=== PATIENT | male | born 1965 | race Caucasian/White ===

== ENCOUNTER 2019-08-25 08:49 | Emergency (ER) | payer MEDICAID, SELFPAY ==
[2019-08-25 08:50] VITALS: BP 169/105; PULSE 93; RESP 15; TEMP 36.6; O2SAT 96; BMI 29.6
--- NOTE | 2019-08-25 09:12 | ED.VISSUMM ---
- ER Visit Summary Date of Service: 08/25/19 Chief Complaint: Low back pain History of Present Illness: The patient is a 54 M no significant past medical history. Patient states that he was removing a air-conditioner from a window at his home and it slipped and he woke up this morning with low back pain. He denies any fall. No other trauma. No weakness or numbness to his legs. No bowel or bladder incontinence. No back history. No prior back surgery. Physical Examination: Middle-aged male no acute distress vital signs are stable and he is afebrile. HEENT exam unremarkable. Neck nontender. Lungs clear to auscultation bilaterally. Heart regular rhythm no murmur. Abdomen soft nontender. Normal bowel sounds no peritoneal signs. Remedies moves all 4. Neurovascular intact. Normal motor strength and sensation of both upper and lower extremities. No cauda equina. No saddle anesthesia. Back exam is mild tenderness to his lumbar spine diffusely but primarily to the left lower paralumbar soft tissues. This is consistent with a myofascial strain with spasm. Neurologically is awake and alert with no focal motor or sensory deficits. Test Results: None. Discussed with the patient imaging is not felt to be necessary at this time he is comfortable with that not being done. Emergency Department Course and Treatment: Motrin for pain. Treatment Plan: Motrin for pain and inflammation. Valium for muscle spasms. Follow-up if not improving. Off work today. Light duty for 1 week. Disposition: Discharge Impression: Acute low back pain secondary to low back strain and muscle spasm This note was generated with [employer] dictation software. It may contain incorrect words, spelling, and punctuation that were not noted in review of the chart prior to signing ED Disposition - Plan for ED Patient: Referrals: Care Physician,No Primary [Primary Care Provider] -
--- NOTE | 2019-08-25 09:15 | ED.DEP ---
ED Disposition - Plan for ED Patient: Disposition: Home or Assisted Living Instructions: Back Sprain/Strain Prescriptions: Diazepam [Valium] 5 mg PO 4X/DAY PRN PRN 7 Days #20 tab PRN Reason: Muscle Spasm Prescription Printed Referrals: Dario Barnes MD [STAFF PHYSICIAN] - 1 Week if not improving Additional Instructions: Hot shower, warm baths and massage to relieve muscle spasm. Motrin for pain. Valium as a muscle relaxant. Do not drive or drink alcohol using Valium. Off work today. Light duty for 1 week. Follow-up if not improving.
[2019-08-25] MEDS: Ibuprofen 600 MG Tablet PO (09:17)
== END 2019-08-25 09:29 | disposition home or self-care (01) ==
LOC: ED 09:18
PROVIDERS: Emergency Provider Emergency Medicine
DX: S39.012A Strain of muscle, fascia and tendon of lower back, initial encounter (principal); X58.XXXA Exposure to other specified factors, initial encounter; Y93.89 Activity, other specified; Y92.009 Unspecified place in unspecified non-institutional (private) residence as the place of occurrence of the external cause; M62.830 Muscle spasm of back; Z72.0 Tobacco use
CPT/HCPCS: 99283

== ENCOUNTER 2020-05-09 12:55 | Emergency (ER) | payer OTHER, MEDICAID, SELFPAY ==
[2020-05-09 12:56] VITALS: BP 116/90; PULSE 87; RESP 18; TEMP 36.6; O2SAT 94; BMI 29.5
--- NOTE | 2020-05-09 13:15 | ED.DCSUM_ITS ---
History of Present Illness Informant: Patient Occurred: Days - 2 days Mechanism/Context: - - lifting Onset: Days - 2 days Context: Sudden Onset Timing: Continuous Quality of Pain: Sharp Location: righ arm Current Severity: Severe Maximum Severity: Severe Worsened by: movement Relieved by: nothing Associated Symptoms: Negative for: Parasthesia, Weakness, Loss of Funtion Narrative: 54-year-old male [id number] presents with a right arm injury. He was lifting up a box 2 days ago flexing at the elbow and felt a pop in his bicep. He has had pain swelling and bruising. No trauma. No weakness. No paresthesia s. No chest pain or shortness of breath. Tetanus Immunization: Unknown Prior similar symptoms: No Recent Illness/Hospitalization: No <Leoncio Baker - Last Filed: 05/09/20 13:40> <Mello Granado - Last Filed: 05/09/20 14:05> Chief Complaint: Upper Extremity Injury Past Medical History Prior records reviewed: Yes Past Medical History: None Surgical History: no surgical history Lives: With Family Smoking Status: Current every day smoker Alcohol: Occasional Drugs: None <Leoncio Baker - Last Filed: 05/09/20 13:40> <Mello Granado - Last Filed: 05/09/20 14:05> - Allergies and Home Meds Allergies/Adverse Reactions: Allergies No Known Allergies Allergy (Verified 05/09/20 12:58) Primary Care Physician: Jarrod Amezquita MD [STAFF PHYSICIAN] - As soon as possible Review of Systems All systems negative except as indicated General: Denies: Chills, Fever, Sweats Eyes: Denies: Visual changes - bilaterally, Diplopia ENT: Denies: Rhinorrhea, Sore throat Cardiovascular: Denies: Chest pain, Palpitations Respiratory: Denies: Dyspnea, Cough, Dyspnea on exertion Gastrointestinal: Denies: Abdominal pain, Nausea, Vomiting, Diarrhea, Melena, Hematochezia Genitourinary: Denies: Dysuria, Hematuria, Frequency Musculoskeletal: Reports: Swelling, Extremity Pain. Denies: Back pain Skin: Denies: Rash, Wounds Neurological: Denies: Headache, Weakness, Parasthesia, Numbness <Leoncio Baker - Last Filed: 05/09/20 13:40> Physical Exam Vital Signs/Narrative: Vital Signs Temp Pulse Resp BP Pulse Ox 05/09/20 12:56 98 F 87 18 116/90 H 94 Inital Vital Signs reviewed: Yes Right Humerus: - - Patient has swelling and bruising of his right arm with obvious bunching of his right bicep. He has a Orestes deformity. He is got pain on palpation over his proximal arm but not over the shoulder or deltoid. He has a normal radial pulse. He has no signs of compartment syndrome. He is normal range of motion at his shoulder and wrist. General: Well nourished, Well developed Head: Normocephalic, Atraumatic Eyes: Perrl, EOMI ENT: No Trauma, Moist Mucous Membranes Neck: Nontender, Full ROM Cardiovascular: Regular rate, Regular rhythm, No murmurs Respiratory: No distress, CTA bilaterally, Chest nontender Abdomen: Soft, Nontender, Nondistended, Normal bowel sounds Back: Nontender Skin: Normal color, No rash Neurological: Alert, Oriented x3, Cranial nerves II-XII grossly intact, Normal Strength, Normal Sensation Psychological: Normal affect <Leoncio Baker - Last Filed: 05/09/20 13:40> Vital Signs/Narrative: Vital Signs Temp Pulse Resp BP Pulse Ox 05/09/20 12:56 98 F 87 18 116/90 H 94 <Mello Granado - Last Filed: 05/09/20 14:05> Diagnostic/Tx/Re-eval Impressions Humerus X-Ray 05/09/20 13:20 IMPRESSION: Normal x-ray examination of the humerus. Electronically Signed: Rubin Pleitez MD at 13:35 EDT Tel , Service support , Shoulder X-Ray 05/09/20 13:20 IMPRESSION: Normal x-ray examination of the shoulder. Electronically Signed: Rubin Pleitez MD at 13:36 EDT Tel , Service support , 05/09/20 13:20 Humerus min 2 Views [RAD] Stat Shoulder min 2 Views [RAD] Stat - Medical Decision Making On exam the patient clinically has evidence of a proximal right bicep tear. No signs of compartment syndrome. X-rays of the shoulder and humerus are negative. I spoke with Dr. Amezquita on-call orthopedic surgeon to arrange for close follow- up. Patient will be given a note for work. He will rest he will ice he will elevate I will prescribe analgesia and he will call orthopedics tomorrow to arrange for close follow-up <Leoncio Baker - Last Filed: 05/09/20 13:40> - Medical Decision Making I saw this patient with the physician assistant purchasing manager and agree. Patient was lifting a heavy box. He developed a sudden pain in his right upper arm and noticed swelling there. On clinical examination findings are most consistent with a biceps tendon rupture. X-rays were negative for fracture. We did speak to orthopedics on-call patient will follow-up later this week. <Mello Granado - Last Filed: 05/09/20 14:05> ED Disposition <Leoncio Baker - Last Filed: 05/09/20 13:40> <Mello Granado - Last Filed: 05/09/20 14:05> - Plan for ED Patient: Disposition: Home or Assisted Living Diagnosis: right proximal bicep tendon tear Instructions: ED Shoulder Pain Uncertain Cause Prescriptions: Naproxen [Naprosyn] 500 mg PO BID #20 tab Prescription Printed Hydrocodone Bitart/Apap 5-325 [[place] 5MG-325MG] 1 tab PO Q6H PRN PRN 3 Days #10 tab PRN Reason: Pain Prescription Printed Referrals: Jarrod Amezquita MD [STAFF PHYSICIAN] - As soon as possible Additional Instructions: What is biceps tendinopathy? Biceps tendinopathy is a condition that can cause pain in the front of the shoulder. Doctors use the term biceps tendinopathy when people have a problem with their biceps tendon. The biceps is the muscle in the front of the upper arm (figure 1). Tendons are strong bands of tissue that connect muscles to bones. In people with biceps tendinopathy, a tendon in the shoulder called the long head biceps tendon is most often affected. In most people with biceps tendinopathy, the tendons are not inflamed or swollen. If they do get inflamed or swollen, doctors call it tendinitis. What causes biceps tendinopathy? This condition can happen as people get older, especially if they do a lot of work or activity with their arms overhead. Tendinitis can happen if people hurt their upper arm or shoulder, or do the same movements over and over. What are the symptoms of biceps tendinopathy? The most common symptoms are: ?Pain in the front of the shoulder ? The pain is usually worse at night and with lifting, pulling, or reaching overhead. ?Trouble moving the upper arm and shoulder People with tendinitis can also have swelling. Sometimes, an injured tendon tears. This can cause a sudden pop, pain, bruising, or swelling. Will I need tests? You might. Your doctor or nurse will talk with you and do an exam. They might also do an imaging test, such as an ultrasound or MRI scan. Imaging tests create pictures of the inside of the body. How is biceps tendinopathy treated? Most of the time, this condition will get better on its own, but it can take weeks to months to heal completely. For the first few days or weeks of your symptoms, you can try the following steps to see if you feel better: ?Rest your arm and shoulder ? Avoid lifting or reaching overhead. Try to keep your arm down, close to, and in front of your body. If you find you need to keep your arm still and close to your body for a while, do some pendulum swings (described below) from time to time. This will help keep you from getting too stiff. ?Ice the painful area ? Put a cold gel pack, bag of ice, or bag of frozen vegetables on the injured area every 1 to 2 hours, for 15 minutes each time. This is especially helpful after you do a lot of activity involving your shoulder. Put a thin towel between the ice (or other cold object) and your skin. ?Take medicine to reduce the swelling and pain ? To treat pain, you can take acetaminophen (sample brand name: Tylenol). Your doctor might also recommend that you take a nonsteroidal antiinflammatory drug or NSAID. NSAIDs are a group of medicines that includes ibuprofen (sample brand names: Advil, Motrin) and naproxen (sample brand names: Aleve, Naprosyn). If your symptoms don't improve with these treatments, your doctor or nurse might recommend that you have physical therapy (work with an exercise expert). They might also recommend that you do exercises at home. The following shoulder exercises can help stretch your shoulder and keep it from getting too stiff: ?Pendulum swing ? Let your arm relax and hang down, while you sit or stand. Move your arm back and forth, then side to side, and then around in small circles (figure 2). Try to do this exercise for 5 minutes, 1 or 2 times a day. Your doctor might suggest that you hold a weight in your hand when doing the exercise to make it harder. ?Wall walk ? Face a wall, and stand close enough so that you can touch the wall with your fingertips. Stretch out your arm, parallel to the floor, and put your fingertips on the wall. Then walk your fingers up the wall until you feel mild soreness or aching. Keep your shoulders level (do not shrug them). Try to do this exercise for 5 minutes, 2 or 3 times a day (picture 1). When you do these exercises, it's important to: ?Warm up your shoulder first by taking a hot shower or bath, or putting a heating pad on it. ?Start slowly and make the exercises harder over time. ?Know that some soreness is normal. If you have sharp or tearing pain, stop what you're doing and let your doctor or nurse know. What if my symptoms don't get better? If your symptoms don't get better, talk with your doctor or nurse about other possible treatments, such as: ?Getting a shot of medicine into the painful area ?Surgery When will I be able to do my usual activities again? You can return to your usual activities when you are able to move your arm in all directions without pain. To avoid hurting yourself, restart your activities or sports slowly.
--- NOTE | 2020-05-09 13:20 | RAD_ITS ---
STUDY: X-RAY - RIGHT HUMERUS REASON FOR EXAM: Male, 54 years old. ARM INJURY 4 DAYS AGO, PAIN AND BRUISING TECHNIQUE: 2 view(s) of the humerus. COMPARISON: None. FINDINGS: Normal visualized humerus. There is no demonstrated fracture or osseous destructive process. There is no demonstrated soft tissue abnormality. RAD/Humerus min 2 Views IMPRESSION: Normal x-ray examination of the humerus. Electronically Signed: Rubin Pleitez MD at 13:35 EDT Tel , Service support ,
--- NOTE | 2020-05-09 13:20 | RAD_ITS ---
STUDY: X-RAY - RIGHT SHOULDER REASON FOR EXAM: Male, 54 years old. SHOULDER INJURY 4 DAYS AGO, PAIN AND BRUISING TECHNIQUE: 4 view(s) of the shoulder. COMPARISON: None. FINDINGS: Normal glenohumeral articulation. Normal acromioclavicular joint. Normal acromion. Normal humeral head and visualized proximal humerus. The soft tissue structures are unremarkable. Normal visualized pulmonary apex. RAD/Shoulder min 2 Views IMPRESSION: Normal x-ray examination of the shoulder. Electronically Signed: Rubin Pleitez MD at 13:36 EDT Tel , Service support ,
== END 2020-05-09 14:00 | disposition home or self-care (01) ==
PROVIDERS: Emergency Provider Physician Assistant Medical
DX: S46.211A Strain of muscle, fascia and tendon of other parts of biceps, right arm, initial encounter (principal); F17.200 Nicotine dependence, unspecified, uncomplicated; X50.0XXA Overexertion from strenuous movement or load, initial encounter
CPT/HCPCS: 73030; 73060; 99282

== ENCOUNTER 2022-02-28 10:02 | Emergency (ER) | payer BC, MEDICAID, SELFPAY ==
[2022-02-28 10:03] VITALS: BP 173/109; PULSE 84; RESP 16; TEMP 36.4; O2SAT 99; BMI 29.6
--- NOTE | 2022-02-28 10:30 | RAD_ITS ---
STUDY: X-RAY - LEFT HAND, ATTENTION MIDDLE FINGER REASON FOR EXAM: Male, 56 years old. Infection -- 3rd finger TECHNIQUE: 3 view(s) of the finger were obtained. COMPARISON: None. FINDINGS: Normal metacarpal head. Normal metacarpophalangeal joint. Normal proximal phalanx. Normal middle phalanx. Adjacent to the distal aspect of the middle phalanx, there is a 2.4 mm well-defined bony density suggestive of an old avulsion fracture. Normal distal phalanx. Normal proximal interphalangeal joint. Normal distal interphalangeal joint. Diffuse soft tissue swelling. RAD/Finger(s) Min 2 Views IMPRESSION: Diffuse soft tissue swelling. Electronically Signed: Hayden Yusuf MD at 10:56 EDT ,
[2022-02-28] MEDS: HYDROcodone Bitartrate/Apap 5/325 Tablet PO (10:31)
[2022-02-28] MEDS: Clindamycin HCl 150 MG Capsule 450 MG PO (10:31)
[2022-02-28] MEDS: Lidocaine 1% (20 ml mdv) 20 ML Vial INFILT (10:42)
--- NOTE | 2022-02-28 12:12 | EDS_ITS ---
HPI History of Present Illness Chief Complaint: Upper Extremity Injury Detail of Chief Complaint: Left third finger infection Informant: patient Onset/Context/Timing Onset: Days Context: Gradual Onset Current Severity: Moderate Maximum Severity: Moderate Narrative Narrative: Patient presents secondary to infection in his left third finger. He states it has become increasingly painful over the past couple of days. He did get a small amount of pus to drain along the nail border yesterday. Today it was too painful to attempt again. 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 He does not remember an injury. PFSH PFS Medical History Pneumothorax Home Medications NK 02/28/22 [History Last Taken Unknown] clindamycin HCl 300 mg PO 4X/DAY #80 cap 02/28/22 [Rx Last Taken Unknown] hydrocodone-acetaminophen 1 tab PO Q6H PRN 3 Days #10 tab 02/28/22 [Rx Last Taken Unknown] Allergy/AdvReac Type Severity Reaction Status Date / Time No Known Allergies Allergy Verified 02/28/22 10:04 Surgical History History of appendectomy Social History Smoking Status: Current every day smoker tobacco type: cigarettes ROS ROS ED Constitutional Constitutional ED: Denies chills or fever(s) Eyes Eyes: Denies change in vision ENT ENT ED: Denies sore throat Cardiovascular Cardiovascular: Denies chest pain Respiratory/Chest Respiratory/Chest: Denies cough or dyspnea Gastrointestinal Gastrointestinal: Denies abdominal pain, nausea or vomiting Genitourinary Genitourinary ED: Denies dysuria Musculoskeletal Musculoskeletal: Reports other Details: Left third finger pain and swelling. ; Denies back pain Integumentary Denies rash Neurologic Neurologic: Denies headache(s) or weakness Allergic/Immunologic Allergic/Immunologic ED: Denies urticaria EXAM Physical Exam Const Vital Signs: 02/28/22 10:03 Temperature 97.6 F L Temperature Source Temporal Pulse Rate 84 Respiratory Rate 16 Blood Pressure 173/109 H Blood Pressure Mean 130 Pulse Ox 99 Oxygen Delivery Method Room Air Positive well nourished and well developed General Appearance ED: well developed HEENT normocephalic and atraumatic Eyes PERRL and EOMs intact bilaterally Neck supple Chest Wall inspection of chest normal and palpation of chest normal Resp normal respiratory effort and clear to auscultation bilaterally Cardio regular rate and regular rhythm GI non-tender Palpation: soft Extremity Extremity Narrative: Tenderness and edema noted to the distal phalanx of the left third finger. Findings are consistent with a felon. No spontaneous drainage at this time. No open wounds. Neuro oriented x3 Sensorium / Orientation: alert Psych mental status grossly normal Skin Lesions: no lesions Rashes: no rashes MDM MDM MDM Narrative Medical decision making narrative: Left third finger x-rays obtained. Patient given [place] and clindamycin for pain. Radiography Diagnostic Testing: Clinical Impression(s) from Imaging Studies Finger X-Ray 02/28/22 10:30 IMPRESSION: Diffuse soft tissue swelling. Electronically Signed: Hayden Yusuf MD at 10:56 EDT , Treatment and Re-Evaluation Narrative: Finger x-ray per my interpretation reveals no radiopaque foreign body. Radiology interpretation reviewed and agrees. Digital block is performed using 5 cc 1% lidocaine. Following good anesthesia wound is thoroughly cleansed. A incision is made with a #11 blade on the radial surface of the left distal phalanx. Small amount of pus does return along with blood. Curved hemostats were used to open loculations. Wound is cleansed, irrigated, and dressed. Patient will be given prescription for [place] as well as clindamycin. Return instructions given. Discharge Plan Triage Chief Complaint: Upper Extremity Injury ED Provider: Kasey Ruano Dx/Rx/DC Orders Clinical Impression: Felon Instructions: ED Paronychia of the Finger or Toe Prescriptions: New clindamycin HCl 150 MG capsule 300 mg PO 4X/DAY Qty: 80 RF: 0 hydrocodone-acetaminophen 5-325 mg tablet 1 tab PO Q6H PRN (Reason: pain) 3 Days Qty: 10 RF: 0 No Action NK RF: 0 Stand Alone Forms: ED Work / School Excuse Primary Care Provider: Care Physician,No Primary Referrals: Elly Sewell DO [STAFF PHYSICIAN] - 1-2 Weeks Care Physician,No Primary [Primary Care Provider] - Disposition Disposition: Home, Self Care Discharge Date/Time: 02/28/22 12:22
== END 2022-02-28 12:22 | disposition home or self-care (01) ==
PROVIDERS: Emergency Provider Emergency Medicine; Visit Provider Emergency Medicine
DX: L03.012 Cellulitis of left finger (principal); F17.210 Nicotine dependence, cigarettes, uncomplicated
CPT/HCPCS: 26010; 73140; 99285

== ENCOUNTER 2022-04-14 08:39 | Emergency (ER) | payer MEDICAID, SELFPAY ==
[2022-04-14 08:40] VITALS: BP 165/111; PULSE 82; RESP 17; TEMP 36.5; O2SAT 95; BMI 29.2
--- NOTE | 2022-04-14 09:04 | ED.RN ---
WAS SEEN BY DR. KEYS FOR I&D. ASKED PT. IF THEY FOLLOWED UP WITH DR. KEYS AND PT. SAID THAT DOCTOR LUDMILA TOLD HIM SHE IS NOT ACCEPTING NEW PATIENTS. AND THIS NURSE STATED, WELL, WOULD YOU BE A NEW PATIENT IF THEY ALREADY SAW YOU ONCE? PT. STATED THAT DOCTOR SAID THEY WOULD ONLY SEE THEM ONCE.
--- NOTE | 2022-04-14 09:21 | RAD_ITS ---
STUDY: X-RAY - LEFT HAND REASON FOR EXAM: Male, 56 years old. Injury to the distal third digit. TECHNIQUE: 3 view(s) of the hand. COMPARISON: None. FINDINGS: Normal radiocarpal articulation. Normal distal radioulnar joint. Normal visualized carpal bones. Normal carpal articulations Normal carpometacarpal articulation of the thumb. Normal second through fifth carpometacarpal joints. Normal metacarpi. Normal metacarpophalangeal joint of the thumb. Normal interphalangeal joint of the thumb. Normal proximal and distal phalanges of the thumb. Normal metacarpophalangeal joints of the second through fifth fingers. Normal proximal and distal interphalangeal joints of the second through fifth fingers. Tiny avulsion along the ulnar aspect of the distal portion of the middle phalanx of the third digit. Soft tissue swelling RAD/Hand Min 3 Views IMPRESSION: Tiny avulsion along the ulnar aspect of the distal portion of the middle phalanx of the third digit with overlying soft tissue swelling. Electronically Signed: Hayden Yusuf MD at 10:03 EDT ,
--- NOTE | 2022-04-14 09:22 | EDS_ITS ---
HPI <CLARE Hahn - Last Filed: 04/14/22 10:21> History of Present Illness Chief Complaint: Upper Extremity Injury Narrative Narrative: Patient is a 56-year-old male with no significant medical history presents the [place] with distal left third digit pain on the left hand. Patient has had paronychia 2 times in the last 8 weeks, he was treated with antibiotics and had it drained both times. Patient states for the last 2 to 3 days, he has had increased redness to the distal tip of the third finger, increased pain, and is here for evaluation. Patient denies any fevers or chills. Patient denies any PFSH <CLARE Hahn - Last Filed: 04/14/22 10:21> PFSH Medical History Pneumothorax Home Medications clindamycin HCl 150 mg capsule 300 mg PO 4X/DAY #80 caps 02/28/22 [Rx Last Taken Unknown] hydrocodone-acetaminophen 5-325mg 5mg-325mg 1 tab PO Q6H PRN pain 3 days #10 tabs 02/28/22 [Rx Last Taken Unknown] cephalexin 500 mg capsule 500 mg PO Q6 #40 caps 04/14/22 [Rx Last Taken Unknown] sulfamethoxazole 800 mg-trimethoprim 160 mg tablet (Bactrim DS) 1 tab PO BID #20 tabs 04/14/22 [Rx Last Taken Unknown] Allergy/AdvReac Type Severity Reaction Status Date / Time No Known Allergies Allergy Verified 04/14/22 08:40 Surgical History History of appendectomy Social History Smoking Status: Current every day smoker tobacco type: cigarettes ROS <CLARE Hahn - Last Filed: 04/14/22 10:21> ROS ED ROS Narrative Constitutional: Negative for fever, chills, weight loss, weakness Eyes: Negative for vision loss, vision change, double vision ENT: Negative for any sore throat, ear pain, congestion Cardiovascular: Negative for any chest pain, tightness, palpitations Respiratory: Negative for any cough, sputum production, hemoptysis, dyspnea, dyspnea on exertion, orthopnea Gastrointestinal: Negative for any abdominal pain, nausea, vomiting, diarrhea, constipation, blood in stool, blood in vomit : Negative for any urinary frequency, dysuria, retention, blood in urine Muscle skeletal: Negative for any muscle joint pain, stiffness, myalgias, arthralgias, neck pain, back pain. Positive for pain, redness, swelling to the left middle finger Neurological: Negative for any headache, syncope, numbness or tingling, dizziness Skin: Negative for any rashes, lumps, itching, abrasions, lacerations Psychiatric: Negative for any depression, anxiety, stress, suicidal ideation, homicidal ideation Hematologic: Negative for any easy bruising, excessive bruising, easy bleeding Allergies: Negative for any eczema, hives, rash EXAM <CLARE Hahn - Last Filed: 04/14/22 10:21> Physical Exam Narrative Exam Narrative: Vital signs reviewed. Extremities: No peripheral edema, no signs of gross trauma or deformity. Active full range of motion of all extremities. Patient has full range of motion of the left middle finger, above the DIP joint, there is some erythema, edema, there is no known drainage, there is no collection of drainage around the nailbed. It is just red, inflamed. Patient does have pain below the nail as well. Neurologically focal logically intact. Palpable radial pulse. Neuro: Cranial nerves II through XII intact, no focal neurological deficits. Skin: Clean dry and intact with no rash, purpura, petechiae, vesicles or pustules. Backs/flank: No CVA tenderness, no midline spinal tenderness, no deformity. Psych: Normal mood and affect. No SI, HI or acute psychosis. Const Vital Signs: 04/14/22 08:40 Temperature 97.7 F L Temperature Source Temporal Pulse Rate 82 Respiratory Rate 17 Blood Pressure 165/111 H Blood Pressure Mean 129 Pulse Ox 95 Oxygen Delivery Method Room Air MDM <CLARE Hahn - Last Filed: 04/14/22 10:21> [facility] Treatment and Re-Evaluation Narrative: Patient presents to the emergency department with complaints of pain and pressure to the right middle finger secondary to a paronychia. Patient has no full body symptoms such as sepsis. Patient does have history of paronychia in this area. The right hand was x-rayed inserted by ER physician, this shows a tiny avulsion along the ulnar aspect the distal portion of the middle phalanx of the third digit with overlying soft tissue swelling. Patient's right middle finger was digitally blocked, I was able to use an 11 blade and make a 1 cm incision along the cuticle line to the lateral part of the nail, copious amounts of foul-smelling yellow drainage was expelled. Patient tolerated well. Patient will be treated with Keflex, Bactrim. He will also follow-up with a hand surgeon at [facility]. He is instructed to return for any worsening symptoms. Patient stable for discharge. <Dr. Jeremiah Red, DO - Last Filed: 04/14/22 10:31> [facility] Narrative Medical decision making narrative: I have personally performed a face to face assessment of the patient and have reviewed the MASSIMO Note. I performed a substantive portion of the visit including all aspects of the following. My valerio findings include: History: Patient presents with redness and swelling to his right middle finger that has been getting worse over the past few days. Patient has a history of paronychia in that finger that has been drained twice. Patient states that the pain started to return again a few days ago. Patient describes the pain as throbbing. Patient states nothing makes it better nothing makes it worse. Patient denies any fevers or chills. Patient denies any radiation of the pain. Exam: Vital signs are stable. Patient is afebrile. Patient is in no acute distress. Skin is warm and dry. There is edema, erythema, and tenderness over the distal phalanx of the right middle finger along the nail margin. There is no active drainage. There is no fluctuance. Sensation was intact to light touch in all digits. Capillary refills less than 2 seconds in all digits. There is full range of motion. Medical Decision Making: X-rays of the right hand were obtained. There are 3 views. On my interpretation, there is a tiny avulsion along the ulnar aspect of the distal portion of the middle phalanx of the right middle finger. There are no other acute abnormalities. Radiologist also interpreted the x-rays and agrees. The right middle finger with cleaned and anesthetized 1% lidocaine. The paronychia was opened with an 11 blade scalpel. Moderate amount of purulent drainage was expressed. Patient tolerated the procedure well. Patient was given a referral for hand surgery. Patient was given prescriptions for Bactrim and Keflex. Patient was instructed to return if worse in any way. Patient understood and was agreeable with the plan. All questions were answered. Discharge Plan Triage Chief Complaint: Upper Extremity Injury ED Midlevel Provider: Ugo Rucker ED Provider: Jeremiah Red Dx/Rx/DC Orders Clinical Impression: Paronychia Instructions: ED Paronychia of the Finger or Toe Prescriptions: New cephalexin 500 mg capsule 500 mg PO Q6 Qty: 40 0RF sulfamethoxazole-trimethoprim [Bactrim DS] 800-160 mg tablet 1 tab PO BID Qty: 20 0RF No Action clindamycin HCl 150 MG capsule 300 mg PO 4X/DAY Qty: 80 0RF hydrocodone-acetaminophen 5-325 mg tablet 1 tab PO Q6H PRN (Reason: pain) 3 Days Qty: 10 0RF Primary Care Provider: Care Physician,No Primary Referrals: Care Physician,No Primary [Primary Care Provider] - Activity Restrictions/Additional Instructions: Please follow-up at [facility]: ?[id number], [place] [address] ?[phone] Print Language: Surinamese Disposition Disposition: Home, Self Care
[2022-04-14] MEDS: Lidocaine 1% (20 ml mdv) 20 ML Vial INFILT (10:17)
[2022-04-14] MEDS: Cephalexin 250 MG Capsule 500 MG PO (10:17)
[2022-04-14] MEDS: Smz/Tmp Ds Tablet 1 TABLET PO (10:17)
== END 2022-04-14 10:25 | disposition home or self-care (01) ==
PROVIDERS: Emergency Provider Emergency Medicine; Visit Provider Emergency Medicine
DX: L03.012 Cellulitis of left finger (principal); F17.210 Nicotine dependence, cigarettes, uncomplicated
CPT/HCPCS: 73130; 99283

== ENCOUNTER 2023-08-16 09:09 | Emergency (ER) | payer MEDICAID, SELFPAY ==
[2023-08-16 09:10] VITALS: BP 159/94; PULSE 76; RESP 16; TEMP 36.2; O2SAT 97; BMI 27.6
--- NOTE | 2023-08-16 09:38 | EX.ED.UPPERE ---
HPI History of Present Illness HPI Narrative: Left shoulder pain for several months after lifting and carrying a hot water tank. Denies any falls or trauma otherwise. He is right-hand dominant. Chief Complaint: Upper Extremity Injury Informant: patient and spouse/S.O. Occured/Mechanism Mechanism/Context: Yes injury Onset/Context/Timing Onset: Month(s) Context: Sudden Onset Timing: Continuous Quality of Pain: Sharp and Stabbing Current Severity: Mild Maximum Severity: Moderate Associated Symptoms Associated Symptoms: Negative for Parasthesia, Weakness or Loss of Funtion Narrative Narrative: 58-year-old male otherwise healthy. [id number]. Was lifting hot water tank around 2 months ago since that time he had pain in his left shoulder. He has normal range of motion but he has pain with range of motion especially lifting his left arm over his shoulder. He had x-rays done at another facility that were reportedly negative. Prior similar symptoms: No Recent Illness/Hospitalization: No PFSH PFSH Medical History Pneumothorax Home Medications clindamycin HCl 150 mg capsule 300 mg (2 x 150 mg) PO 4X/DAY #80 caps 02/28/22 [Rx Last Taken Unknown] hydrocodone-acetaminophen 5-325mg 5mg-325mg 1 tab PO Q6H PRN pain 3 days #10 tabs 02/28/22 [Rx Last Taken Unknown] cephalexin 500 mg capsule 500 mg PO Q6 #40 caps 04/14/22 [Rx Last Taken Unknown] sulfamethoxazole 800 mg-trimethoprim 160 mg tablet (Bactrim DS) 1 tab PO BID #20 tabs 04/14/22 [Rx Last Taken Unknown] Allergy/AdvReac Type Severity Reaction Status Date / Time No Known Allergies Allergy Verified 04/14/22 08:40 Surgical History History of appendectomy Social History Smoking Status: Current every day smoker tobacco type: cigarettes ROS ROS ED ROS Narrative Recent illness. Review of Systems ROS Unobtainable: Denies due to encephalopathy Constitutional Constitutional ED: Denies chills or fever(s) Eyes Eyes: Denies blurry vision ENT ENT ED: Denies ear pain Cardiovascular Cardiovascular: Denies chest pain Respiratory/Chest Respiratory/Chest: Denies cough or dyspnea Gastrointestinal Gastrointestinal: Denies abdominal pain Genitourinary Genitourinary ED: Denies dysuria Musculoskeletal Musculoskeletal: Denies back pain Integumentary Denies abscess or Abrasions Neurologic Neurologic: Denies headache(s) Psychiatric Psychiatric: Denies anxiety or depression Endocrine Endocrinology: Denies cold intolerance Hematologic/Lymphatic Hematologic/Lymphatic: Denies easy bleeding or easy bruising Allergic/Immunologic Allergic/Immunologic ED: Denies mouth swelling, tongue swelling or urticaria EXAM Physical Exam Narrative Exam Narrative: Well-appearing 54-year-old male. Vital signs stable afebrile. HEENT exam unremarkable. Neck nontender. Lungs clear to auscultation bilateral. Heart regular rhythm no murmur. Chest wall nontender. Abdomen soft nontender. Moving all 4 extremities. Neurovascular intact. Nontender no edema. Specifically he has full flexion extension internal/external rotation of left shoulder. He has increased pain posterior aspect of his shoulder with raising his left arm over his head. But he is able to do it. I do not see any disruption of the left AC joint. There is no bony deformity. No swelling or redness to the left shoulder joint. The joint itself is not specifically tender. He has normal flexion extension left elbow. Left wrist and hand. 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 Normal sensation. Normal radial pulse. Const Vital Signs: 08/16/23 09:10 Temperature 97.2 F L Temperature Source Temporal Pulse Rate 76 Respiratory Rate 16 Blood Pressure 159/94 H Blood Pressure Mean 115 Pulse Ox 97 Oxygen Delivery Method Room Air Positive well nourished and well developed; Negative for obese, cachectic, contractures or unkempt General Appearance ED: well developed and NAD; Negative for unkempt, cachectic, contractures, cyanotic or diaphoretic Nutritional Appearance: Negative for cachectic or obese HEENT Reports moist mucous membranes normocephalic and atraumatic; Negative for trauma or tenderness Eyes PERRL and EOMs intact bilaterally General Eye ED: Negative for other Neck full ROM and supple General: Negative for tenderness Lymph Lymphatic: Negative for other Chest Wall inspection of chest normal and palpation of chest normal Chest: Negative for other Resp normal respiratory effort and clear to auscultation bilaterally Effort and Inspection: Negative for pain with movement Auscultation: Negative for rales, rhonchi, wheezes or diminished lung sounds Cardio regular rate, regular rhythm, S1 normal heart sound, S2 normal heart sound and no murmurs Rate: Negative for bradycardia or tachycardic GI non-tender, non-distended and no masses Inspection: Negative for abdominal distention Auscultation: normoactive bowel sounds Palpation: soft; Negative for tender or guarding Bladder / Kidney Exam: No other Back/Spine no CVA tenderness General Back: Negative for CVA tenderness Cervical Spine: Negative for cervical spine tenderness Thoracic Spine / Upper Back: Negative for thoracic spinal tenderness Lumbar Spine / Lower Back: Negative for lumbar spinal tenderness Extremity normal to inspection and full ROM Extremity Narrative: Full range of motion left shoulder. No swelling. No redness. Increased pain in posterior shoulder with raising his left arm above his head. 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 Normal sensation. Exam is consistent with a possible rotator cuff injury on the left. But she does have continued range of motion. AC joints nontender. No deformity. General Extremety ED: Negative for edema General Extremity: Negative for edema Neuro oriented x3, CN's II-XII intact bilaterally, moves all extremities, no focal motor deficits and no sensory deficits noted Sensorium / Orientation: alert, oriented to person, oriented to place and oriented to time; Negative for orientation impaired Motor Exam: strength 5/5 throughout Psych mental status grossly normal Appearance: Negative for unkempt Attitude: No agitated Mood & Affect: Negative for depressed, anxious or tearful Skin General Skin Exam: Negative for petechiae Lesions: no lesions Rashes: no rashes Trauma: no lacerations or abrasions; Negative for abrasion or laceration MDM MDM MDM Narrative Medical decision making narrative: 58-year-old male with left shoulder injury 2 months ago. Continued pain and worse with range of motion specifically elevation of the left arm above the shoulder. Clinically I suspect a rotator cuff injury this could also be other things. Patient's had prior x-rays that were negative. He needs to follow-up with an orthopedic physician and most likely get an MRI. Discharge Plan Triage Chief Complaint: Upper Extremity Injury ED Provider: Hiren Andrews Dx/Rx/DC Orders Clinical Impression: Acute shoulder pain Instructions: ED Shoulder Pain, Uncertain Cause Prescriptions: No Action clindamycin HCl 150 MG capsule 300 mg PO 4X/DAY Qty: 80 0RF hydrocodone-acetaminophen 5-325 mg tablet 1 tab PO Q6H PRN (Reason: pain) 3 Days Qty: 10 0RF cephalexin 500 mg capsule 500 mg PO Q6 Qty: 40 0RF sulfamethoxazole-trimethoprim [Bactrim DS] 800-160 mg tablet 1 tab PO BID Qty: 20 0RF Primary Care Provider: Sheridan Lai Referrals: Michelet Grove MD [Non-Staff] - As soon as possible Cullen Mobley DO [Med Staff - Active Staff] - As soon as possible Care Physician,No Primary [Non-Staff] - Activity Restrictions/Additional Instructions: Most likely you have an injury to your left shoulder rotator cuff it could also possibly be an injury to the AC joint or the cartilage in the shoulder. You most likely need an MRI of your shoulder to make the diagnosis. Typically this will not show up on plain x-rays. Call and follow-up with Dr. Hiren Grove a shoulder specialist at the [facility] or Dr. Mobley a local general orthopedist. Motrin and/or Tylenol for pain. Disposition Disposition: Home, Self Care
== END 2023-08-16 10:24 | disposition home or self-care (01) ==
LOC: ED 09:38
PROVIDERS: Emergency Provider Emergency Medicine; PCP Internal Medicine; Visit Provider Emergency Medicine
DX: M25.512 Pain in left shoulder (principal); F17.210 Nicotine dependence, cigarettes, uncomplicated
CPT/HCPCS: 99282

== ENCOUNTER → 2023-09-07 | Outpatient (CLI) | payer MEDICAID, SELFPAY ==
--- NOTE | 2023-09-07 11:04 | MRI_ITS ---
STUDY: MRI LEFT SHOULDER REASON FOR EXAM: Male, 58 years old. Sprain. Left shoulder pain, status post lifting injury x 3 months, limited range of motion, pain in shoulder and scapula, throbbing, sharp, popping, no surgery on shoulder. TECHNIQUE: Standardized fat and water weighted pulse sequences were obtained in all 3 orthogonal planes. COMPARISON: None. FINDINGS: There is a full-thickness tear of the distal supraspinatus tendon, overall measuring 1.8 cm in length (coronal T2 series 6 images 11-15) and 2.0 cm in width (sagittal T2 series 7 images 12-16). There is mild infraspinatus and subscapularis tendinosis. Normal teres minor tendon. Normal supraspinatus muscle. Normal infraspinatus muscle. Normal subscapularis muscle. Normal teres minor muscle. There is tendinosis and partial tearing of the long biceps tendon. There is a small glenohumeral joint effusion with fluid communicating into the subacromial-subdeltoid bursa. Intact humeral head and visualized proximal humerus. Normal labrum. Normal capsulo-ligamentous complex. There is mild hypertrophic acromioclavicular arthrosis, with inferior osteophyte formation, with minimal effacement of the supraspinatus myotendinous junction. There is a Type II morphology (curved), with a neutral orientation. There is no subacromial-subdeltoid bursal fluid. Normal visualized coracohumeral and coracoacromial ligaments. Normal quadrilateral space. Normal axillary space. Normal deltoid muscle. Normal trapezius muscle. MRI/Upper Ext Joint Only(Routine) IMPRESSION: 1.8 x 2.0 cm full-thickness tear of the distal supraspinatus tendon. Mild infraspinatus and subscapularis tendinosis. Mild hypertrophic acromioclavicular arthrosis, with inferior osteophyte formation, with minimal effacement of the supraspinatus myotendinous junction. Small glenohumeral joint effusion with fluid communicating into the subacromial-subdeltoid bursa. Tendinosis and partial tearing of the long biceps tendon. Electronically Signed: Keaton Hernandez MD at 12:50 EST ,
== END | disposition home or self-care (01) ==
PROVIDERS: PCP Internal Medicine; Referring Provider Physician Assistant Surgical; Visit Provider Physician Assistant Surgical
DX: S46.012A Strain of muscle(s) and tendon(s) of the rotator cuff of left shoulder, initial encounter (principal)
CPT/HCPCS: 73221

== ENCOUNTER 2023-10-18 05:46 | Day surgery (SDC) | payer MEDICAID, SELFPAY ==
[2023-10-09 13:08] LABS: Hematocrit 40.5 % (40-54); Hemoglobin 13.8 g/dL (13.0-16.5); Mean Corp Hgb Conc 34.1 g/dL (32-36); Mean Corpuscular Hgb 30.3 pg (27.0-32.0); Mean Platelet Vol. 10.2 fl (6.2-12.0); Platelet Count 240 K/mm3 (150-450); RBC Distribution Width CV 12.9 % (11.6-14.6); RBC Distribution Width SD 41.8 fl (35.1-43.9); Red Blood Count 4.55 M/mm3 (4.6-6.2); White Blood Count 11.6 K/mm3 (4.4-11.0)
[2023-10-18] VITALS (11 sets, daily range): BP systolic 140–170; BP diastolic 87–108; PULSE 72–89; RESP 16–18; TEMP 36.1–36.9; O2SAT 92–97; BMI 27.7
--- OUTSIDE RECORDS SUMMARY | 2023-10-18 05:51 | XMS RPT_ITS | CCD ---
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 Name Role Phone Elly Sewell DO Unavailable Gravius SAND CAR WORKER, Piper Unavailable Unavailable Bolton SAND CAR WORKER, Kayela Unavailable Unavailable Unavailable Unavailable Unavailable Primary Care Provider Unavailabl e Unavailable Primary Care Provider Unavailabl e No, PCP Primary Care Unavailable PROVIDER, UNKNOWN Referring Unavailable KEILA KUO Attending Unavailable No, PCP Primary Care Unavailable PROVIDER, UNKNOWN Referring Unavailable KEILA KUO Attending Unavailable PROVIDER, UNKNOWN Referring Unavailable KEILA KUO Attending Unavailable No, PCP Primary Care Unavailable No, PCP Primary Care Unavailable LIVAN SMITH Attending Unavailable PROVIDER, UNKNOWN Referring Unavailable PROVIDER, UNKNOWN Referring Unavailable KEILA KUO Attending Unavailable Quiana, PCP Primary Care Unavailable PETER VERDIN Attending Unavailable Mauro Watts MD Primary Care Provider [phone] KEYON CORBIN Referring Unavailable MAURO WATTS Primary Care Unavailable KEYON CORBIN Attending Unavailable MAURO WATTS Primary Care Unavailable FRAN ANGEL Referring Unavailable KEYON CORBIN Attending Unavailable MAURO WATTS Primary Care Unavailable KEYON SKINNER Primary Care Physician DR MATEO COATES DO Attending Unavailable KEYON SKINNER Primary Care Unavailabl e Charlotte Lai DO Primary Care Provider CHARLOTTE LAI Attending Unavailable CHARLOTTE LAI Primary Care Unavailable CHARLOTTE LAI Attending Unavailable CHARLOTTE LAI Primary Care Unavailable CHARLOTTE LAI Primary Care Unavailable Medications Current Medications Medication Drug Class(es) Dates Sig (Normalized) Sig (Original) acetaminophen 325 mg / oxyCODONE hydrochloride 5 mg oral tablet (1 source) Opioid Agonist Start: 07-07-2022 End: 07-14-2022 oxyCODONE-acetam inophen (PERCOCET) 5-325 MG per tablet Indications: Status post surgical amputation of finger of left hand Take 1 tablet by mouth every 6 hours as needed for Pain for up to 7 days. Intended supply: 7 days. Take lowest dose possible to manage pain 28 tablet 0 07/07/2022 07/14/2022 Active amLODIPine 5 mg oral tablet (1 source) Dihydropyridine Calcium Channel Rafia Start: 11-06-2022 End: 12-06-2022 take 1 tablet by mouth once daily amLODIPine (NORVASC) 5 mg tablet Indications: Hypertension, essential Take 1 tablet by mouth once daily. 30 tablet 3 11/06/2022 12/06/2022 Active Completed/Discontinued Medications Medication Drug Class(es) Dates Sig (Normalized) Sig (Original) acetaminophen 500 mg oral tablet (2 sources) Start: 07-07-2022 End: 07-07-2022 acetaminophen (TYLENOL) tablet 1,000 mg Problems Active Problems Problem Classification Problem Date Documented Date Episodic/Chronic Anxiety disorders (4 sources) Generalized anxiety disorder; Translations: [Generalized anxiety disorder] Onset: 4 10-10-2023 Chronic Diabetes mellitus without complication (3 sources) Increased glucose level; Translations: [Other abnormal glucose] Onset: 4 10-10-2023 Episodic Essential hypertension (8 sources) Essential hypertension; Translations: [Essential (primary) hypertension] Onset: 3 Chronic Hemorrhoids (1 source) Hemorrhoids 03-27-2016 Episodic Infective arthritis and osteomyelitis (except that caused by tuberculosis or sexually transmitted disease) (8 sources) Osteomyelitis of left hand; Translations: [Other osteomyelitis, hand] Onset: 2 Chronic Open wounds of extremities (2 sources) Complete traumatic metacarpophalangeal amputation of unspecified finger, subsequent encounter; Translations: [Complete traumatic metacarpophalangeal amputation of unspecified finger, subsequent encounter] Onset: 2 Chronic Other circulatory disease (3 sources) Elevated blood pressure; Translations: [Elevated blood pressure reading] 03-02-2022 Episodic Other circulatory disease (1 source) Elevated blood-pressure reading without diagnosis of hypertension; Translations: [Elevated blood-pressure reading, without diagnosis of hypertension] Episodic Other circulatory disease (1 source) Elevated blood-pressure reading, without diagnosis of hypertension; Translations: [Elevated blood pressure reading without diagnosis of hypertension] Onset: 2 Episodic Other connective tissue disease (2 sources) Pain in left hand; Translations: [Pain in left hand] Onset: 2 Episodic Other male genital disorders (5 sources) Secondary erectile dysfunction; Translations: [Male erectile dysfunction, unspecified] Chronic Other male genital disorders (1 source) Male erectile dysfunction, unspecified; Translations: [ED (erectile dysfunction) of organic origin] Onset: 2 Chronic Other non-traumatic joint disorders (1 source) Chronic pain of left upper limb; Translations: [Pain in left shoulder] 10-10-2023 Episodic Other non-traumatic joint disorders (1 source) Pain in left shoulder; Translations: [Pain in joint, shoulder region] Onset: 4 09-18-2023 Episodic Other screening for suspected conditions (not mental disorders or infectious disease) (7 sources) Patient encounter status; Translations: [Encounter for screening for other disorder] Onset: 2 Episodic Skin and subcutaneous tissue infections (8 sources) Abscess of finger; Translations: [Abscess of left middle finger] Onset: 2 03-02-2022 Episodic Sprains and strains (1 source) Strain of muscle(s) and tendon(s) of the rotator cuff of left shoulder, initial encounter; Translations: [Rotator cuff (capsule) sprain] Onset: 4 09-18-2023 Episodic Substance-related disorders (2 sources) Nicotine dependence, cigarettes, uncomplicated; Translations: [Nicotine dependence, cigarettes, uncomplicated] Onset: 2 Chronic Past or Other Problems Problem Classification Problem Date Documented Da te Episodic/Chronic Abdominal pain (6 sources) Abdominal pain; Translations: [Unspecified abdominal pain] Onset: 04-25-2012 04-25-2012 Episodic Esophageal disorders (6 sources) Esophagitis; Translations: [Esophagitis, unspecified] Onset: 04-30-2012 04-30-2012 Episodic Gastrointestinal hemorrhage (12 sources) Rectal hemorrhage; Translations: [Hemorrhage of anus and rectum] Onset: 04-25-2012 04-25-2012 Episodic Other gastrointestinal disorders (6 sources) Constipation; Translations: [Constipation, unspecified] Onset: 04-25-2012 04-25-2012 Episodic Other non-traumatic joint disorders (6 sources) Shoulder joint pain; Translations: [Pain in unspecified shoulder] Onset: 01-07-2013 01-07-2013 Episodic Spondylosis; intervertebral disc disorders; other back problems (6 sources) Brachial neuritis; Translations: [Radiculopathy, cervical region] Onset: 01-07-2013 01-07-2013 Episodic Unclassified (4 sources) Onset: 10-10-2023 Unclassified (4 sources) Abscess of left middle finger Unclassified (3 sources) Elevated blood pressure reading Results Test Name Value Interpretation Reference Range Facil ity Vital Signs Date Time Vital Sign Value Performing Clinician Facility 10-10-2023 10:21-0500 Diastolic blood pressure 82 mm[Hg] Charlotte Lai DO Work Phone: [facility] 10-10-2023 10:21-0500 Systolic blood pressure 138 mm[Hg] Charlotte Lai DO Work Phone: [facility] 10-10-2023 09:26-0500 Body height 171.5 cm Charlotte Lai DO Work Phone: [facility] 10-10-2023 09:26-0500 Body mass index (BMI) [Ratio] 28.7 kg/m2 Charlotte Lai DO Work Phone: [facility] 10-10-2023 09:26-0500 Body weight 84.37 kg Charlotte Lai DO Work Phone: [facility] 10-10-2023 09:26-0500 Heart rate 81 /min Charlotte Lai DO Work Phone: [facility] 10-10-2023 09:26-0500 Respiratory rate 16 /min Charlotte Lai DO Work Phone: [facility] 06-28-2023 05:56-0400 Body temperature 98.06 [degF] DR MATEO COATES DO [facility] 06-28-2023 05:56-0400 Diastolic Blood Pressure Non-Invasive [address] MATEO COATES DO [facility] 06-28-2023 05:56-0400 Heart rate 87 /min DR GALINDO JANESKATYA DO [facility] 06-28-2023 05:56-0400 Respiratory rate 18 /min DR GALINDO AMINATA DO [facility] 06-28-2023 05:56-0400 Systolic Blood Pressure Non-Invasive [address] GALINDO JANESKATYA DO [facility] 10-02-2022 14:50-0500 Body weight 94.35 kg Keyon Tannhof SPIKEMAKING SUPERVISOR.STRATEGIC INTELLIGENCE OFFICER Work Phone: [facility] 10-02-2022 14:50-0500 Diastolic blood pressure 96 mm[Hg] Keyon Tannhof SPIKEMAKING SUPERVISOR.STRATEGIC INTELLIGENCE OFFICER Work Phone: [facility] 10-02-2022 14:50-0500 Heart rate 86 /min Keyon Tannhof SPIKEMAKING SUPERVISOR.STRATEGIC INTELLIGENCE OFFICER Work Phone: [facility] 10-02-2022 14:50-0500 Respiratory rate 16 /min Keyon Tannhof SPIKEMAKING SUPERVISOR.STRATEGIC INTELLIGENCE OFFICER Work Phone: [facility] 10-02-2022 14:50-0500 SaO2% (BldA) [Mass fraction] 96 % Keyon Tannhof SPIKEMAKING SUPERVISOR.STRATEGIC INTELLIGENCE OFFICER Work Phone: [facility] 10-02-2022 14:50-0500 Systolic blood pressure 160 mm[Hg] Keyon Tannhof SPIKEMAKING SUPERVISOR.STRATEGIC INTELLIGENCE OFFICER Work Phone: [facility] 08-30-2022 14:56-0500 Body weight 94.8 kg Keyon Tannhof SPIKEMAKING SUPERVISOR.STRATEGIC INTELLIGENCE OFFICER Work Phone: [facility] 08-30-2022 14:56-0500 Diastolic blood pressure 102 mm[Hg] Keyon Tannhof SPIKEMAKING SUPERVISOR.STRATEGIC INTELLIGENCE OFFICER Work Phone: [facility] 08-30-2022 14:56-0500 Heart rate 91 /min Keyon Tannhof SPIKEMAKING SUPERVISOR.STRATEGIC INTELLIGENCE OFFICER Work Phone: [facility] 08-30-2022 14:56-0500 Respiratory rate 16 /min Keyon Tannhof SPIKEMAKING SUPERVISOR.STRATEGIC INTELLIGENCE OFFICER Work Phone: [facility] 08-30-2022 14:56-0500 SaO2% (BldA) [Mass fraction] 95 % Keyon Tannhof SPIKEMAKING SUPERVISOR.STRATEGIC INTELLIGENCE OFFICER Work Phone: [facility] 08-30-2022 14:56-0500 Systolic blood pressure 160 mm[Hg] Keyon Tannhof SPIKEMAKING SUPERVISOR.STRATEGIC INTELLIGENCE OFFICER Work Phone: [facility] 07-07-2022 16:00-0400 Diastolic blood pressure 80 mm[Hg] Keila Kuo MD Work Phone: [facility] 07-07-2022 16:00-0400 Heart rate 90 /min Keila Kuo MD Work Phone: [facility] 07-07-2022 16:00-0400 Respiratory rate 15 /min Keila Kuo MD Work Phone: [facility] 07-07-2022 16:00-0400 SaO2% (BldA) [Mass fraction] 96 % Keila Kuo MD Work Phone: [facility] 07-07-2022 16:00-0400 Systolic blood pressure 130 mm[Hg] Keila Kuo MD Work Phone: [facility] 07-07-2022 15:42-0400 Body temperature 98.01 [degF] Keila Kuo MD Work Phone: [facility] 07-07-2022 13:11-0400 Body height 172.7 cm Keial Kuo MD Work Phone: [facility] 07-07-2022 13:11-0400 Body mass index (BMI) [Ratio] 30.41 kg/m2 Keila Kuo MD Work Phone: [facility] 07-07-2022 13:11-0400 Body weight 90.72 kg Keila Kuo MD Work Phone: [facility] 06-06-2022 17:52-0400 Body height 172.7 cm Livan Gombash DO Work Phone: [facility] 06-06-2022 17:52-0400 Body mass index (BMI) [Ratio] 30.11 kg/m2 Livan Gombash DO Work Phone: [facility] 06-06-2022 17:52-0400 Body temperature 98.2 [degF] Livan Gombash DO Work Phone: [facility] 06-06-2022 17:52-0400 Body weight 89.81 kg Livan Gombash DO Work Phone: [facility] 06-06-2022 17:52-0400 Diastolic blood pressure 105 mm[Hg] Livan Gombash DO Work Phone: [facility] 06-06-2022 17:52-0400 Heart rate 91 /min Livan Gombash DO Work Phone: [facility] 06-06-2022 17:52-0400 Respiratory rate 16 /min Livan Gombash DO Work Phone: [facility] 06-06-2022 17:52-0400 SaO2% (BldA) [Mass fraction] 93 % Livan Gombash DO Work Phone: [facility] 06-06-2022 17:52-0400 Systolic blood pressure 161 mm[Hg] Livan Gombash DO Work Phone: [facility] 03-02-2022 11:54-0400 Body temperature 97.5 [degF] Elly Melodie DO Work Phone: [facility] Work Phone: 03-02-2022 11:54-0400 Body weight 88.45 kg Elly Melodie DO Work Phone: [facility]; [facility] Work Phone: 03-02-2022 11:54-0400 Diastolic blood pressure 80 mm[Hg] Elly Sewell DO Work Phone: [facility] Work Phone: Encounters Encounter Date Encounter Type Care Provider Facility Start: 10-10-2023 End: 10-11-2023 ambulatory [facility] LAI [facility] Start: 10-10-2023 End: 10-10-2023 Office outpatient visit 25 minutes Charlotte Lai DO Work Phone: [facility] Procedures Date Procedure Procedure Detail Performing Clinician Start: 10-10-2023 CBC W Auto Differential panel - Blood [facility]TE LAI Start: 10-10-2023 Comprehensive metabolic 2000 panel - Serum or Plasma [facility] LAI Start: 10-10-2023 Hemoglobin A1c/Hemoglobin.total in Blood [facility] LAI Start: 10-10-2023 Lipid panel [facility] LAI Start: 10-10-2023 TSH WITH REFLEX TO FREE T4 IF ABNORMAL [facility] LAI Start: 10-10-2023 Lipid 1996 panel - Serum or Plasma Charlotte Lai DO Work Phone: Start: 07-07-2022 OPERATIVE REPORT Physician Generic Start: 06-30-2022 Mri upper extrem other than jt w/o & w/contras Keila Kuo MD Work Phone: Start: 06-29-2022 Blood count complete auto&auto difrntl wbc Keila Kuo MD Work Phone: Start: 06-29-2022 C-reactive protein Keila Kuo MD Work Phone: Start: 06-29-2022 Radiologic examination eye detect foreign body Keila Kuo MD Work Phone: Start: 04-30-2012 Colonoscopy Keyon Corbin APRN.CNP Work Phone: Appendectomy DR MATEO Mckenzie O History of amputatio n of finger Status post surgical amputation of finger of left hand Keila Kuo MD Work Phone: Plan of Treatment Date Care Activity Detail Author Start: 10-10-2028 Lipid panel Lipid Panel [facility] Start: 09-12-2027 PROSTATE CANCER SCREENING DISCUSSION PROSTATE CANCER SCREENING DISCUSSION [facility] Start: 09-12-2025 Diabetes mellitus screening Diabetes Screening [facility] Start: 09-12-2025 DIABETES SCREEN DIABETES SCREEN [facility] Start: 05-10-2024 DIABETES SCREEN DIABETES SCREEN [facility] Start: 12-05-2023 End: 12-05-2023 Patient encounter procedure 12/05/2023 9:30 AM EDT Office Visit [facility] [address] [place] [address] Charlotte Lai DO [address] [facility] [place], [place] [id number] [facility] Start: 10-10-2023 End: 10-10-2024 Hemoglobin A1c/Hemoglobin.total in Blood Hemoglobin A1C Lab Add-On Elevated glucose Expected: 10/10/2023 (Approximate), Expires: 10/10/2024 [facility] Service Area Work Phone: Immunizations Immunization Date Immunization Notes Care Provider Fa cility 09-21-2021 COVID-19 original vaccine, age 12+ yr, monovalent (PFIZER-BIONTECH - PURPLE TOP) Keyon Corbin APRN.STRATEGIC INTELLIGENCE OFFICER Work Phone: [facility] Payers Date Payer Category Payer Medicaid [id number] 2019 Unknown 2019 Unknown [id number] 2019 Unknown [id number] 1967 Unknown [id number] 2.16. [id number] 1967 Unknown [id number] 2.16. [id number] 1967 Unknown [id number] 2.16. [id number] 1967 Unknown [id number] 2.16. [id number] 1967 Unknown [id number] 2.16. [id number] 1967 Unknown [id number] 2.16.8 [id number] 1967 Unknown [id number] 2.16.8 [id number] 1967 Unknown [id number] 2.16.8 [id number] 1967 Unknown [id number] [id number] Social History Date Type Detail Facility Start: 06-06-2022 End: 09-04-2023 Tobacco smoking status VTIS Smokes tobacco daily [email or web address] Work Phone: History of tobacco use Cigarette Smoker S [facility] Work Phone: Start: 06-06-2022 End: 09-04-2023 Cigarettes smoked current (pack per day) - Reported 0.5 [email or web address] Work Phone: Start: 06-06-2022 End: 10-02-2022 Tobacco use and exposure Smokeless tobacco non-user [email or web address] Work Phone: Start: 06-06-2022 End: 10-02-2022 Alcohol intake Current drinker of alcohol (finding) [email or web address] Work Phone: Start: 06-06-2022 History SDOH Alcohol Comment occ [email or web address] Work Phone: Start: 1965 Sex Assigned At Not on file [email or web address] Work Phone: Start: 05-27-2022 End: 10-10-2023 Exposure to SARS-CoV-2 (event) Not sure [facility] Work Phone: Start: 05-11-2021 End: 09-26-2022 History SDOH Alcohol Frequency 4 [facility] Start: 05-11-2021 End: 09-26-2022 History SDOH Alcohol Std Drinks 3 [facility] Start: 05-11-2021 End: 09-26-2022 History SDOH Social Connections Phone 5 [facility] Start: 05-11-2021 History SDOH Social Connections Muslim 98 [facility] Start: 05-11-2021 End: 09-26-2022 History SDOH Social Connections Membership 2 [facility] Start: 05-11-2021 End: 09-26-2022 History SDOH Social Connections Meetings 1 [facility] Start: 05-11-2021 History SDOH Social Connections Living 8 [facility] Start: 05-11-2021 History SDOH Physical Activity MPS 6 [facility] Start: 05-11-2021 Education 12 [facility] Start: 08-30-2022 Tobacco Comment working on quiting [facility] Start: 11-01-2011 Alcohol Comment occasion [facility] Start: 1965 Sex Assigned At Male [facility] Start: 10-02-2022 Tobacco Comment working on quiting1/2 pack daily [facility] Start: 10-10-2023 Alcohol intake Ex-drinker (finding) [facility] Work Phone: Start: 09-04-2023 Alcohol Use Disorder Identification Test - Consumption [AUDIT-C] [facility] Work Phone: How often to you hav e a drink containing alcohol? Monthly or less [facility] Work Phone: How many standard dr inks containing alcohol do you have on a typical day? 1 or [address] [facility] Work Phone: How often do you hav e 6 or more drinks on 1 occasion? Never [facility] Work Phone: Start: 09-04-2023 Alcohol Comment Occasionally [facility] Work Phone: Functional Status Date Assessment Result Facility 06-28-2023 Functional Status ID band on, Call device within reach, Bed in low position [facility] Mental Status Date Assessment Result Facility 06-28-2023 Mental Status Orientation Oriented x 4 [facility] Clinical Notes 11-28-2021 to 10-10-2023 Charlotte Lai, - 10/10/2023 10:15 AM ESTPatient InstructionsTelephone Encounter - Keyon Corbin APRN.CNP - 11/06/2022 8:33 AM ESTTelephone Encounter - Beatriz Morrison Ma - 11/06/2022 8:05 AM EST Note Date & Type Note Facility 10-10-2023 History of Present illness Narrative Subjective Alfreda Wise is a 58 y.o. male who presents for Follow-up (Pt has c/o difficulty sleeping and worsening anxiety. ). Shoulder surgery scheduled for Oct 18 at [facility] Left shoulder will have shoulder repair and biceps repair as well Still having lots of pain in his left shoulder He is taking meloxicam twice daily He finds that the icy hot heol He was prescribed predisone but he does not like how he feels with it and is not taking it He got his blood tests done this am He is taking lisinopril once daily Has not been sleeping well His anxiety is really high lately . His shoulder pain and inability to work are definitely weighing on him. He has family history of anxiety; his father had been in inpatient psych at times. He has trouble focusing Sleep is interrupted, he falls asleep ok but will wake up multiple times He says he has dealt with anxiety like this in the past, he has never been treated for anxiety or depression. SCOTT-7 was performed and showed moderate anxiety. Review of Systems Objective BP 138/82 (BP Location: Right arm, Patient Position: Sitting, BP Cuff Size: Large adult) Pulse 81 Resp 16 Ht 1.715 m (5' 7.5 ) Wt 84.4 kg (186 lb) BMI 28.70 kg/m Physical Exam Recheck BP was 138/82 with manual cuff in his right arm. Visit Vitals BP 138/82 (BP Location: Right arm, Patient Position: Sitting, BP Cuff Size: Large adult) Pulse 81 Resp 16 Ht 1.715 m (5' 7.5 ) Wt 84.4 kg (186 lb) BMI 28.70 kg/m Smoking Status Every Day BSA 2.01 m GEN: NAD HEENT: normal NECK: no adenopathy, no thyroid enlargment LUNGS: CTAB CV: reg S1/S2 no murmurs EXT: no leg edema Assessment/Plan Problem List Items Addressed This Visit Generalized anxiety disorder - Primary after discussion we will begin escitalopram. 5 mg a day for 4 days and then begin taking 10 mg once daily. Discussed potential GI side effects which can be temporary. Also discussed possibility of sexual side effects. He should let me know if he has problems with them and we could change his medication. If medication is effective treatment target would be at least 6 months and preferably 1 year before stopping to achieve remission of anxiety. Relevant Medications escitalopram (Lexapro) 10 mg tablet Rx #30 tabs with 2 refills sent today. Benign essential HTN he does have some blood pressures from home and they are in 120-130's systolic and diastolics 70-80's. Pulses normal. Will remain on lisinopril 10 mg and refill was submitted. Other Visit Diagnoses Chronic left shoulder pain he is using meloxicam and is going to have surgery in the beginning of next month. See me in 6 to 8 weeks to follow-up on new med. documented in this encounter [facility] Work Phone: 10-10-2023 Instructions Charlotte Lai DO - 10/10/2023 10:15 AM EST Begin LEXAPRO ( escitalopram) : take half a tablet once a day for 4 days, then take one 10 mg tab daily after that. Recommend taking in am, with some food. Some of the stomach type of side effects usually go away on their own after a week or two. See me again in 6 -8 weeks to follow up on anxiety med. documented in this encounter [facility] Work Phone: 06-28-2023 Hospital Discharge instructions Patient Education 06/28/2023 06:04:23 R.I.C.E. RICE RICE stands for rest, ice, compression, and elevation. Doing these things helps limit pain and swelling after an injury. RICE also helps injuries heal faster. Use RICE for sprains, strains, and severe bruises or bumps. Follow the tips on this handout and begin RICE as soon as possible after an injury. Rest Pain is your body s way of telling you to rest an injured area. Whether you have hurt an elbow, hand, foot, or knee, limiting its use will prevent further injury and help you heal. Ice Applying ice right after an injury helps prevent swelling and reduce pain. Don t place ice directly on your skin. Wrap a cold pack or bag of ice in a thin cloth. Place it over the injured area. Ice for 10 minutes every 3 hours. Don t ice for more than 20 minutes at a time. Compression Putting pressure (compression) on an injury helps prevent swelling and provides support. Wrap the injured area firmly with an elastic bandage. If your hand or foot tingles, becomes discolored, or feels cold to the touch, the bandage may be too tight. Rewrap it more loosely. If your bandage becomes too loose, rewrap it. Do not wear an elastic bandage overnight. Elevation Keeping an injury elevated helps reduce swelling, pain, and throbbing. Elevation is most effective when the injury is kept elevated higher than the heart. Call your healthcare provider if you notice any of the following: Fingers or toes feel numb, are cold to the touch, or change color. Skin looks shiny or tight. Pain, swelling, or bruising worsens and is not improved with elevation. [id number] [employer]. [address] [place] [id number]. All rights reserved. This information is not intended as a substitute for professional medical care. Always follow your healthcare professional's instructions. Follow Up Care 06/28/2023 05:53:19 With:KEYON JENKINS Address: [address] [place] [phone] When:2-4 days [facility] 06-28-2023 Note Discharge Instructions Thank you for allowing [facility] to assist you with your healthcare needs. The following is important discharge information regarding your hospital visit. Diagnosis from Today's Visit Shoulder pain-swelling What to Do Next Instructions from Your Care Team No qualifying data available. Post Acute Orders No qualifying data available. You Need to Schedule the Following Appointments Follow Up with KEYON JENKINS When Within 2-4 days Where: [address] [place] [id number] [phone] Allergies NKA Medications Please ask your primary doctor or pharmacist before taking any other medication not listed, including over the counter drugs, herbal medications, vitamins and or supplements as they may interact with your home medications. What How Much When Instructions Last Dose New naproxen (naproxen 250 mg oral tablet) 2 tab(s) by mouth Two (2) times a day Duration: 5 Days with food Printed Prescription Unchanged albuterol (albuterol MDI (90 mcg/ inh) CFC free inhalation aerosol) 1 puff(s) by inhalation Four (4) times a day Duration: 30 Days use with spacer chamber Unchanged pramoxine topical (Proctofoam 1% rectal foam) 1 application in the rectum Four (4) times a day Please take this list to your next doctor s visit. Bring all medications you take, including over the counter medications, herbals and other supplements with you to your doctor s visit. Patients and families are reminded to discard old lists and to update any records with all medication providers or retail pharmacies. Education Materials RICE RICE stands for rest, ice, compression, and elevation. Doing these things helps limit pain and swelling after an injury. RICE also helps injuries heal faster. Use RICE for sprains, strains, and severe bruises or bumps. Follow the tips on this handout and begin RICE as soon as possible after an injury. Rest Pain is your body s way of telling you to rest an injured area. Whether you have hurt an elbow, hand, foot, or knee, limiting its use will prevent further injury and help you heal. Ice Applying ice right after an injury helps prevent swelling and reduce pain. Don t place ice directly on your skin. Wrap a cold pack or bag of ice in a thin cloth. Place it over the injured area. Ice for 10 minutes every 3 hours. Don t ice for more than 20 minutes at a time. Compression Putting pressure (compression) on an injury helps prevent swelling and provides support. Wrap the injured area firmly with an elastic bandage. If your hand or foot tingles, becomes discolored, or feels cold to the touch, the bandage may be too tight. Rewrap it more loosely. If your bandage becomes too loose, rewrap it. Do not wear an elastic bandage overnight. Elevation Keeping an injury elevated helps reduce swelling, pain, and throbbing. Elevation is most effective when the injury is kept elevated higher than the heart. Call your healthcare provider if you notice any of the following: Fingers or toes feel numb, are cold to the touch, or change color. Skin looks shiny or tight. Pain, swelling, or bruising worsens and is not improved with elevation. [id number] [employer]. [address] [place] [address]. All rights reserved. This information is not intended as a substitute for professional medical care. Always follow your healthcare professional's instructions. Additional Information VACCINATE! IT SAVES LIVES! Members of the community who have not yet received the COVID-19 vaccine and would like to receive it can visit one of [facility] vaccine clinics. There are many vaccine clinic locations within the [facility]. For locations and available times, please visit [email or web address] It is important to note that some COVID mobile vaccine clinics are held outdoors and may be canceled in rainy or stormy conditions. To learn more about pediatric vaccinations (ages 5-11), we invite you to visit the [facility] webpage. [email or web address] [email or web address] To learn more about the COVID-19 vaccine, we invite you to visit the CDC website for a list of frequently asked questions. https://www.cdc.gov/coronavirus/ 2019-ncov/vaccines/faq.html [facility] Patient Portal Access Instructions: Stay connected with your healthcare team and access your personal medical information anytime with the [facility] Patient Portal. If you would like a full copy of your medical records please contact the [facility] Medical Records Department Sunday through Sunday between 8a.m. and 4:30p.m. Please follow the directions below to access the portal: 1.Access the email account you provided upon registration to the [facility].2.Look for an invitation email from [facility].3.Open the email and access the invitation link: Accept Invitation to [facility]4.Fill in the required cerrato to create your account. Sign into [email or web address] with your username and password that you created in the above steps to stay up to date. You can then view a summary of results, a summary of your visits, and the ability to download your summaries to your computer or send the information securely to a physician. Remember that your healthcare information is confidential, so carefully consider who you will allow to register on the [facility] Patient Portal for access to your information. You can also access the [facility] Patient Portal on the [employer]. Simply click on Health Records under Health Data and then click on the Will logo. HOW TO SAFELY DISPOSE OF PRESCRIPTION MEDICATIONS Please use one of the following methods to safely dispose of your unused medications. 1.Use a drug disposal kit: the drug disposal pouch allows you to safely discard your old and unused drugs. Ask your nurse to give you one when you are discharged.2.Visit a local take-back location: Many local pharmacies and police departments have programs that collect old and unwanted prescription drugs. Call your local pharmacy or go to http://[employer].Wattics/3I5Wy5y to find one close to you.3.Make use of household items: Use cat litter or old coffee grounds to dispose medications if other options are not available. Mix your drugs with these household products, seal them in an airtight container and throw it into the garbage. Call [facility]: [phone] to be sure your drugs can be disposed of in this way. Some medicines may require a different approach.4.Never flush your medications down the toilet. IF YOU HAVE BEEN PRESCRIBED AN OPIOIDS FOR PAIN If you have been prescribed an opioid (such as hydrocodone, oxycodone or morphine), it is critical to understand the possible side effects and risks of opioid pain medications. Even when taken as directed, opioids can have several side effects including: Tolerance, meaning you might need to take more of a medication for the same pain relief. Nausea, vomiting and/or constipation. Sleepiness, dizziness, dry mouth, confusion, depression or itching. Physical dependence, meaning you have withdrawal symptoms when a medication is stopped ? this can develop within a few days. KNOW YOUR RESPONSIBILITIES It is important to know exactly how much and how often to take the opioid pain medications you are prescribed. Never take opioids in higher amounts or more often than prescribed. Do not combine opioids with alcohol or other drugs that cause drowsiness, such as benzodiazepines, also known as benzos, including diazepam and alprazolam, muscle relaxants or sleep aids. Never sell or share prescription opioids. This is illegal. Store opioids in a secure place and out of reach of others (including children, family, friends and visitors). The last page(s) of this document has been signed and retained as a CHART COPY Signatures Patient Education Materials R.I.C.E. Medication Leaflets My discharge plan and instructions have been reviewed and explained to me and IGUILLE HAROLD R understand my current condition and have read and understand these discharge instructions. I have received a written copy of the plan/instructions. If I have questions, I am aware that I should contact my doctor. 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 There is no focal consolidation or pulmonary edema. No pleural effusion or pneumothorax. Large left apical bulla is unchanged. Degenerative changes of the visualized spine. IMPRESSION: No acute cardiopulmonary process. Unchanged left apical bulla. I have personally reviewed the images of this examination and agree with the resident's findings and interpretation. Interpreted by: Hugo Molina MD Preliminary Report By: Jerry Saucedo Electronically signed By Hugo Molina MD Dictated Date: 06/28/2023 6:19:42 AM Prelim Date: 06/28/2023 6:23:11 AM Sign Date: 06/28/2023 6:52:31 AM Ordering Provider: [facility] 11-06-2022 Miscellaneous Notes The following approved medication requests have been transmitted electronically. Requested Prescriptions Signed Prescriptions Disp Refills amLODIPine (NORVASC) 5 mg tablet 30 tablet 3 Sig: Take 1 tablet by mouth once daily. Keyon Corbin APRN.DOUG See pt's BP readings from home. Beatriz Morrison Ma documented in this encounter [facility] 10-02-2022 Note HNO ID: [id number] Author: Keyon Corbin APRN.DOUG Service: ? Author Type: Nurse Practitioner Type: Progress Notes Filed: 10/02/2022 3:25 PM Note Text: This is a 57 year old male who presents today with: Patient presents with: Follow Up: 1 month BP check HISTORY OF PRESENT ILLNESS: Alfreda Wise is a 57 year old male. Patient presents with: Follow Up: 1 month BP check Here in the office for Blood pressure check. Not currently checking blood pressure at home, had to order a new BP cuff. Denies any chest pain, dizziness, palpitations, or edema. Working on watching diet. Has never been diagnosed with HTN. Smoking 1/2 ppd. Not interested in quitting. PAST MEDICAL HISTORY: PAST MEDICAL HISTORY Diagnosis Date Hypertension Lung disease, bullous (HCC) Pneumothorax left PAST SURGICAL HISTORY Procedure Laterality Date APPENDECTOMY CHEST TUBE (SPECIFY) 1994 pneumothorax spontaneous COLONOSCOPY FLX DX W/COLLJ SPEC WHEN PFRMD 04/30/12 few diverticula - 10 yr follow up EGD TRANSORAL BIOPSY SINGLE/MULTIPLE 04/30/12 esophagitis, gastritis ALLERGIES Patient has no known allergies. MEDICATIONS Current Outpatient Medications Medication Sig NAPROXEN, BULK, MISC daily at bedtime. PARoxetine (PAXIL) 10 mg tablet Take 1 tablet by mouth once daily. (Patient not taking: Reported on 07/30/2021 ) cyclobenzaprine (FLEXERIL) 10 mg tablet Take 1 tablet by mouth three times daily as needed for muscle spasm. (Patient not taking: Reported on 11/28/2021 ) multivitamin (DAILY VITAMIN) tablet Take 1 tablet by mouth once daily. (Patient not taking: Reported on 05/07/2021 ) No current facility-administered medications for this visit. FAMILY HISTORY Problem Relation Age of Onset Alcohol/Drug Father Heart Mother Emphysema Mother Social History Tobacco Use Smoking status: Every Day Packs/day: 0.50 Years: 30.00 Pack years: 15.00 Types: Cigarettes Smokeless tobacco: Never Tobacco comments: working on quiting 1/2 pack daily Substance Use Topics Alcohol use: Yes Alcohol/week: 15.0 - 30.0 standard drinks Types: 6 - 12 Cans of Beer (12oz) per week Comment: occasion REVIEW OF SYSTEMS GENERAL: No weight loss, malaise or fevers/chills HEENT: Negative for frequent or significant headaches, No changes in hearing or vision. NECK: Negative for lumps, goiter, pain and significant neck swelling RESPIRATORY: Negative for cough, hemoptysis, wheezing, dyspnea or shortness of breath CARDIOVASCULAR: Negative for chest pain, leg swelling, orthopnea, or palpitations GI: No nausea, vomiting, or diarrhea/constipation. No hematochezia/melena. No heartburn or reflux symptoms. : No history of dysuria, frequency or incontinence MUSCULOSKELETAL: Negative for joint pain or swelling. SKIN: Negative for lesions, rash, and itching ENDOCRINE: Negative for cold or heat intolerance, polyuria, polydipsia and goiter NEURO: No history of headaches, syncope, paralysis, seizures or tremors MOOD: Negative for depression, anxiety, or suicidal ideation. EXAM: BP 160/96 Pulse 86 Resp 16 Wt 94.3 kg (208 lb) SpO2 96% BMI 31.16 kg/m? PHYSICAL EXAM: General Appearance: Well appearing, alert, in no acute distress, well-hydrated, well nourished. Skin: Skin color, texture, turgor normal, no suspicious rashes or lesions. Head: Normocephalic, no masses, lesions, tenderness or abnormalities. Eyes: Anicteric sclera. Extraocular movements are intact. . Lungs: Lungs clear to auscultation. No wheezing, rhonchi, rales. Heart: RRR without murmur, gallop, or rubs. No ectopy. Extremities: No deformities, edema, skin discoloration, clubbing or cyanosis. Good capillary refill. Peripheral Pulses: Normal, Capillary refill <2secs, strong peripheral pulses, Pulses palpable. Neurologic: Gait normal. Sensation grossly intact. ASSESSMENT/PLAN: 1. Hypertension, essential - ICD9: 401.9, ICD10: I10 - newly diagnosed - Would like to monitor blood pressure at home before considering starting medication. - Instructed to message the office in about a week with BP readings at home. - Encouraged dietary sodium restriction/DASH diet - Recommended regular aerobic exercise. - Recommend home blood pressure monitoring, to bring results in on next visit - Discussed need and benefit for weight loss. - Follow up in 1 month for BP recheck. - Goal of BP <130/80 - Patient counselled on smoking cessation. Follow-up in 1 month or sooner as needed. Discussed treatment plan and patient voices understanding. Patient's questions answered appropriately. Medications and potential side effects were discussed and patient voices understanding. Keyon Corbin APRN.DOUG This note was partially generated using [employer] voice recognition system. Note was reviewed for accuracy. There may be minor misspellings or grammar miscues with [employer] voice recognition. [facility] 10-02-2022 Instructions Keyon Corbin APRN.DOUG - 10/02/2022 2:59 PM EST Start monitoring blood pressure at home, take 1-2 times per day. Write those readings down and bring to next visit or mchart the office. Watch processed foods and salt in the diet. Get some form of exercise. Follow up in 1 month. Recommend smoking cessation documented in this encounter [facility] 10-02-2022 History of Present illness Narrative This is a 57 year old male who presents today with: Patient presents with: Follow Up: 1 month BP check HISTORY OF PRESENT ILLNESS: Alfreda Wise is a 57 year old male. Patient presents with: Follow Up: 1 month BP check Here in the office for Blood pressure check. Not currently checking blood pressure at home, had to order a new BP cuff. Denies any chest pain, dizziness, palpitations, or edema. Working on watching diet. Has never been diagnosed with HTN. Smoking 1/2 ppd. Not interested in quitting. PAST MEDICAL HISTORY: PAST MEDICAL HISTORY Diagnosis Date Hypertension Lung disease, bullous (HCC) Pneumothorax left PAST SURGICAL HISTORY Procedure Laterality Date APPENDECTOMY CHEST TUBE (SPECIFY) 1994 pneumothorax spontaneous COLONOSCOPY FLX DX W/COLLJ SPEC WHEN PFRMD 04/30/12 few diverticula - 10 yr follow up EGD TRANSORAL BIOPSY SINGLE/MULTIPLE 04/30/12 esophagitis, gastritis ALLERGIES Patient has no known allergies. MEDICATIONS Current Outpatient Medications Medication Sig NAPROXEN, BULK, MISC daily at bedtime. PARoxetine (PAXIL) 10 mg tablet Take 1 tablet by mouth once daily. (Patient not taking: Reported on 07/30/2021 ) cyclobenzaprine (FLEXERIL) 10 mg tablet Take 1 tablet by mouth three times daily as needed for muscle spasm. (Patient not taking: Reported on 11/28/2021 ) multivitamin (DAILY VITAMIN) tablet Take 1 tablet by mouth once daily. (Patient not taking: Reported on 05/07/2021 ) No current facility-administered medications for this visit. FAMILY HISTORY Problem Relation Age of Onset Alcohol/Drug Father Heart Mother Emphysema Mother Social History Tobacco Use Smoking status: Every Day Packs/day: 0.50 Years: 30.00 Pack years: 15.00 Types: Cigarettes Smokeless tobacco: Never Tobacco comments: working on quiting 1/2 pack daily Substance Use Topics Alcohol use: Yes Alcohol/week: 15.0 - 30.0 standard drinks Types: 6 - 12 Cans of Beer (12oz) per week Comment: occasion REVIEW OF SYSTEMS GENERAL: No weight loss, malaise or fevers/chills HEENT: Negative for frequent or significant headaches, No changes in hearing or vision. NECK: Negative for lumps, goiter, pain and significant neck swelling RESPIRATORY: Negative for cough, hemoptysis, wheezing, dyspnea or shortness of breath CARDIOVASCULAR: Negative for chest pain, leg swelling, orthopnea, or palpitations GI: No nausea, vomiting, or diarrhea/constipation. No hematochezia/melena. No heartburn or reflux symptoms. : No history of dysuria, frequency or incontinence MUSCULOSKELETAL: Negative for joint pain or swelling. SKIN: Negative for lesions, rash, and itching ENDOCRINE: Negative for cold or heat intolerance, polyuria, polydipsia and goiter NEURO: No history of headaches, syncope, paralysis, seizures or tremors MOOD: Negative for depression, anxiety, or suicidal ideation. EXAM: BP 160/96 Pulse 86 Resp 16 Wt 94.3 kg (208 lb) SpO2 96% BMI 31.16 kg/m PHYSICAL EXAM: General Appearance: Well appearing, alert, in no acute distress, well-hydrated, well nourished. Skin: Skin color, texture, turgor normal, no suspicious rashes or lesions. Head: Normocephalic, no masses, lesions, tenderness or abnormalities. Eyes: Anicteric sclera. Extraocular movements are intact. . Lungs: Lungs clear to auscultation. No wheezing, rhonchi, rales. Heart: RRR without murmur, gallop, or rubs. No ectopy. Extremities: No deformities, edema, skin discoloration, clubbing or cyanosis. Good capillary refill. Peripheral Pulses: Normal, Capillary refill <2secs, strong peripheral pulses, Pulses palpable. Neurologic: Gait normal. Sensation grossly intact. ASSESSMENT/PLAN: 1. Hypertension, essential - ICD9: 401.9, ICD10: I10 - newly diagnosed - Would like to monitor blood pressure at home before considering starting medication. - Instructed to message the office in about a week with BP readings at home. - Encouraged dietary sodium restriction/DASH diet - Recommended regular aerobic exercise. - Recommend home blood pressure monitoring, to bring results in on next visit - Discussed need and benefit for weight loss. - Follow up in 1 month for BP recheck. - Goal of BP <130/80 - Patient counselled on smoking cessation. Follow-up in 1 month or sooner as needed. Discussed treatment plan and patient voices understanding. Patient's questions answered appropriately. Medications and potential side effects were discussed and patient voices understanding. Keyon Corbin APRN.STRATEGIC INTELLIGENCE OFFICER This note was partially generated using [employer] recognition system. Note was reviewed for accuracy. There may be minor misspellings or grammar miscues with [employer] voice recognition. documented in this encounter [facility] 09-01-2022 Miscellaneous Notes The following approved medication requests have been transmitted electronically. Requested Prescriptions Signed Prescriptions Disp Refills sildenafil (VIAGRA) 25 mg tablet 30 tablet 5 Sig: Take 1 tablet by mouth as needed. Keyon Corbin APRN.CNP Spoke to patient who is aware will need to use goodrx coupon. Please send rx to [facility] get 30 pills for 14 dollars Deanna Nathan Ma documented in this encounter [facility] 08-31-2022 Miscellaneous Notes The following approved medication requests have been transmitted electronically. Requested Prescriptions Signed Prescriptions Disp Refills Tadalafil (CIALIS) 10 mg tablet 8 tablet 5 Sig: Use 1-2 tablets before sexual intercourse. Keyon Corbin APRN.CNP documented in this encounter [facility] 08-30-2022 Note HNO ID: [id number] Author: Keyon Corbin APRN.CNP Service: ? Author Type: Nurse Practitioner Type: Progress Notes Filed: 08/30/2022 4:32 PM Note Text: This is a 57 year old male who presents today with: Patient presents with: Acute Visit: erectile discussion HISTORY OF PRESENT ILLNESS: Alfreda Wise is a 57 year old male. Patient presents with: Acute Visit: erectile discussion Here in the office for concerns for ED. Refers that for the past month having difficulty maintaining an erection. Unable to ejaculate. No urinary symptoms or difficulty with urine stream. No penile discharge/STD concerns. Has never had these symptoms in the past. Has had elevated glucose in the past without the diagnosis of diabetes. Smoking 1/2 PPD. PAST MEDICAL HISTORY: PAST MEDICAL HISTORY Diagnosis Date Hypertension Lung disease, bullous (HCC) Pneumothorax left PAST SURGICAL HISTORY Procedure Laterality Date APPENDECTOMY CHEST TUBE (SPECIFY) 1994 pneumothorax spontaneous COLONOSCOPY FLX DX W/COLLJ SPEC WHEN PFRMD 04/30/12 few diverticula - 10 yr follow up EGD TRANSORAL BIOPSY SINGLE/MULTIPLE 04/30/12 esophagitis, gastritis ALLERGIES Patient has no known allergies. MEDICATIONS Current Outpatient Medications Medication Sig PARoxetine (PAXIL) 10 mg tablet Take 1 tablet by mouth once daily. (Patient not taking: Reported on 07/30/2021 ) cyclobenzaprine (FLEXERIL) 10 mg tablet Take 1 tablet by mouth three times daily as needed for muscle spasm. (Patient not taking: Reported on 11/28/2021 ) multivitamin (DAILY VITAMIN) tablet Take 1 tablet by mouth once daily. (Patient not taking: Reported on 05/07/2021 ) No current facility-administered medications for this visit. FAMILY HISTORY Problem Relation Age of Onset Alcohol/Drug Father Heart Mother Emphysema Mother Social History Tobacco Use Smoking status: Every Day Packs/day: 0.50 Years: 30.00 Pack years: 15.00 Types: Cigarettes Smokeless tobacco: Never Tobacco comments: working on quiting Substance Use Topics Alcohol use: Yes Alcohol/week: 15.0 - 30.0 standard drinks Types: 6 - 12 Cans of Beer (12oz) per week Comment: occasion REVIEW OF SYSTEMS GENERAL: No weight loss, malaise or fevers/chills HEENT: Negative for frequent or significant headaches, No changes in hearing or vision. NECK: Negative for lumps, goiter, pain and significant neck swelling RESPIRATORY: Negative for cough, hemoptysis, wheezing, dyspnea or shortness of breath CARDIOVASCULAR: Negative for chest pain, leg swelling, orthopnea, or palpitations GI: No nausea, vomiting, or diarrhea/constipation. No hematochezia/melena. No heartburn or reflux symptoms. : + Erectile dysfunction MUSCULOSKELETAL: Negative for joint pain or swelling. SKIN: Negative for lesions, rash, and itching ENDOCRINE: Negative for cold or heat intolerance, polyuria, polydipsia and goiter NEURO: No history of headaches, syncope, paralysis, seizures or tremors MOOD: Negative for depression, anxiety, or suicidal ideation. EXAM: BP 160/102 Pulse 91 Resp 16 Wt 94.8 kg (209 lb) SpO2 95% BMI 31.31 kg/m? PHYSICAL EXAM: General Appearance: Well appearing, alert, in no acute distress, well-hydrated, well nourished. Skin: Skin color, texture, turgor normal, no suspicious rashes or lesions. Head: Normocephalic, no masses, lesions, tenderness or abnormalities. Eyes: Anicteric sclera. Extraocular movements are intact. Lungs: Lungs clear to auscultation. No wheezing, rhonchi, rales. Heart: RRR without murmur, gallop, or rubs. No ectopy. Extremities: No deformities, edema, skin discoloration, clubbing or cyanosis. Good capillary refill. Peripheral Pulses: Normal, Capillary refill <2secs, strong peripheral pulses, Pulses palpable. Neurologic: Gait normal. Reflexes normal and symmetric. Sensation grossly intact. ASSESSMENT/PLAN: 1. ED (erectile dysfunction) of organic origin - ICD9: 607.84, ICD10: N52.9 (primary diagnosis) - Get labs and urine testing completed. - May try Viagra 25 mg as needed - Medication education and instructions discussed. - COMP METABOLIC PANEL - SILDENAFIL 25 MG TABLET - URINALYSIS, WITH MICROSCOPIC 2. Elevated blood pressure reading without diagnosis of hypertension - ICD9: 796.2, ICD10: R03.0 - Encouraged dietary sodium restriction/DASH diet - Recommended regular aerobic exercise. - Recommend home blood pressure monitoring, to bring results in on next visit - Discussed need and benefit for weight loss. - Follow up in 1 month for BP recheck. - Goal of BP <130/80 3. Screening for prostate cancer - ICD9: V76.44, ICD10: Z12.5 - PSA/PROSTSPECAG SCRN 4. Screening for diabetes mellitus - ICD9: V77.1, ICD10: Z13.1 - HGB A1C Follow-up in 1 month or sooner as needed. Discussed treatment plan and patient voices understanding. Patient's questions answered appropriately. Medications and potential s (more content not included)... [facility] 08-30-2022 Instructions Keyon Corbin APRN.CNP - 08/30/2022 3:12 PM EST Get labs and urine testing completed. May use Viagra 25 mg as needed. Check GoodRX Monitor blood pressure at home, take blood pressure 1-2 times per day and write down readings bring to next visit. Watch processed foods and salt in the diet. Follow up in 1 month for blood pressure check. documented in this encounter [facility] 08-30-2022 History of Present illness Narrative This is a 57 year old male who presents today with: Patient presents with: Acute Visit: erectile discussion HISTORY OF PRESENT ILLNESS: Alfreda Wise is a 57 year old male. Patient presents with: Acute Visit: erectile discussion Here in the office for concerns for ED. Refers that for the past month having difficulty maintaining an erection. Unable to ejaculate. No urinary symptoms or difficulty with urine stream. No penile discharge/STD concerns. Has never had these symptoms in the past. Has had elevated glucose in the past without the diagnosis of diabetes. Smoking 1/2 PPD. PAST MEDICAL HISTORY: PAST MEDICAL HISTORY Diagnosis Date Hypertension Lung disease, bullous (HCC) Pneumothorax left PAST SURGICAL HISTORY Procedure Laterality Date APPENDECTOMY CHEST TUBE (SPECIFY) 1994 pneumothorax spontaneous COLONOSCOPY FLX DX W/COLLJ SPEC WHEN PFRMD 04/30/12 few diverticula - 10 yr follow up EGD TRANSORAL BIOPSY SINGLE/MULTIPLE 04/30/12 esophagitis, gastritis ALLERGIES Patient has no known allergies. MEDICATIONS Current Outpatient Medications Medication Sig PARoxetine (PAXIL) 10 mg tablet Take 1 tablet by mouth once daily. (Patient not taking: Reported on 07/30/2021 ) cyclobenzaprine (FLEXERIL) 10 mg tablet Take 1 tablet by mouth three times daily as needed for muscle spasm. (Patient not taking: Reported on 11/28/2021 ) multivitamin (DAILY VITAMIN) tablet Take 1 tablet by mouth once daily. (Patient not taking: Reported on 05/07/2021 ) No current facility-administered medications for this visit. FAMILY HISTORY Problem Relation Age of Onset Alcohol/Drug Father Heart Mother Emphysema Mother Social History Tobacco Use Smoking status: Every Day Packs/day: 0.50 Years: 30.00 Pack years: 15.00 Types: Cigarettes Smokeless tobacco: Never Tobacco comments: working on quiting Substance Use Topics Alcohol use: Yes Alcohol/week: 15.0 - 30.0 standard drinks Types: 6 - 12 Cans of Beer (12oz) per week Comment: occasion REVIEW OF SYSTEMS GENERAL: No weight loss, malaise or fevers/chills HEENT: Negative for frequent or significant headaches, No changes in hearing or vision. NECK: Negative for lumps, goiter, pain and significant neck swelling RESPIRATORY: Negative for cough, hemoptysis, wheezing, dyspnea or shortness of breath CARDIOVASCULAR: Negative for chest pain, leg swelling, orthopnea, or palpitations GI: No nausea, vomiting, or diarrhea/constipation. No hematochezia/melena. No heartburn or reflux symptoms. : + Erectile dysfunction MUSCULOSKELETAL: Negative for joint pain or swelling. SKIN: Negative for lesions, rash, and itching ENDOCRINE: Negative for cold or heat intolerance, polyuria, polydipsia and goiter NEURO: No history of headaches, syncope, paralysis, seizures or tremors MOOD: Negative for depression, anxiety, or suicidal ideation. EXAM: BP 160/102 Pulse 91 Resp 16 Wt 94.8 kg (209 lb) SpO2 95% BMI 31.31 kg/m PHYSICAL EXAM: General Appearance: Well appearing, alert, in no acute distress, well-hydrated, well nourished. Skin: Skin color, texture, turgor normal, no suspicious rashes or lesions. Head: Normocephalic, no masses, lesions, tenderness or abnormalities. Eyes: Anicteric sclera. Extraocular movements are intact. Lungs: Lungs clear to auscultation. No wheezing, rhonchi, rales. Heart: RRR without murmur, gallop, or rubs. No ectopy. Extremities: No deformities, edema, skin discoloration, clubbing or cyanosis. Good capillary refill. Peripheral Pulses: Normal, Capillary refill <2secs, strong peripheral pulses, Pulses palpable. Neurologic: Gait normal. Reflexes normal and symmetric. Sensation grossly intact. ASSESSMENT/PLAN: 1. ED (erectile dysfunction) of organic origin - ICD9: 607.84, ICD10: N52.9 (primary diagnosis) - Get labs and urine testing completed. - May try Viagra 25 mg as needed - Medication education and instructions discussed. - COMP METABOLIC PANEL - SILDENAFIL 25 MG TABLET - URINALYSIS, WITH MICROSCOPIC 2. Elevated blood pressure reading without diagnosis of hypertension - ICD9: 796.2, ICD10: R03.0 - Encouraged dietary sodium restriction/DASH diet - Recommended regular aerobic exercise. - Recommend home blood pressure monitoring, to bring results in on next visit - Discussed need and benefit for weight loss. - Follow up in 1 month for BP recheck. - Goal of BP <130/80 3. Screening for prostate cancer - ICD9: V76.44, ICD10: Z12.5 - PSA/PROSTSPECAG SCRN 4. Screening for diabetes mellitus - ICD9: V77.1, ICD10: Z13.1 - HGB A1C Follow-up in 1 month or sooner as needed. Discussed treatment plan and patient voices understanding. Patient's questions answered appropriately. Medications and potential side effects were discussed and patient voices understanding. Keyon Corbin APRN.STRATEGIC INTELLIGENCE OFFICER This note was partially generated using [employer] voice recognition system. Note was reviewed for accuracy. There may be minor misspellings or grammar miscues with [employer] voice recognition. documented in this encounter [facility] 07-07-2022 History of Present illness Narrative Discharge instructions given to pt and pts spouse. Both verbalize understanding. Pt states pain is tolerable and states readiness for discharge. Vss. Pt tolerating drink and crackers. Iv removed intact. Pt dressed and up ambulating without difficulty. Pt discharged to home via wheelchair with all belongings and homegoing instructions. Pt received from OR via cart, spont. Resp. With BROTHEL KEEPER in attendance. Placed on monitor. Monitor alarms on in PACU Elevation to LT hand documented in this encounter [facility] Phone: 07-07-2022 Hospital Discharge instructions Peter Verdin PA-C - 07/07/2022 3:53 PM EDT Bandage: Keep operative dressing on, clean, and dry for one week. After one week from the date of surgery, you can remove the dressing. It is okay to shower and get the incision wet but do not soak the incision. Please keep a dry dressing or band aid over the incision until follow up appointment in 2 weeks. Swelling control: Elevate and Ice for pain control. Immobilization: Encourage range of motion of index finger, long finger, ring finger, little finger, thumb, wrist and elbow in dressing with goal of touching fingertips to palm by initial post op appointment. Weightbearing: Non weight bearing in operative extremity. Nerve block for pain control: You received a local injection with lidocaine and epinephrine today. It is normal for your finger tip to look pale or white for up to 10 hours after surgery but if this persists past the 10 hours please call the office immediately. documented in this encounter [employer] Work Phone: 11-28-2021 Influenza virus A and B RNA and SARS-CoV-2 (COVID-19) N gene panel CHADWICK+probe (Resp) COVID 19 RESULT: SARS-CoV-2 (Agent of COVID-19) Not Detected by RT-PCR or equivalent method. andreas [id number] ([email or web address])_EUA This test has been authorized by the FDA under an Emergency Use Authorization (EUA). 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 note* Diagnosis ED (erectile dysfunction) of organic origin- Primary Impotence of organic origin documented in this encounter [facility] note* Diagnosis ED (erectile dysfunction) of organic origin Impotence of organic origin documented in this encounter [facility] note* Diagnosis ED (erectile dysfunction) of organic origin- Primary Impotence of organic origin documented in this encounter [facility] note* Diagnosis Hypertension, essential- Primary Unspecified essential hypertension documented in this encounter [facility] note* Diagnosis Hypertension, essential- Primary Unspecified essential hypertension ED (erectile dysfunction) of organic origin Impotence of organic origin documented in this encounter [facility] note* Diagnosis Generalized anxiety disorder- Primary Benign essential HTN Chronic left shoulder pain Pain in joint, shoulder region Elevated glucose Other abnormal glucose documented in this encounter [facility] Work Phone: Hospital Discharge instructions* Attachments The following attachments cannot be sent through Care Everywhere. * Paronychia (Polish) documented in this [facility] Work Phone: Reason for Referral Specialty Diagnoses / Procedures Referred By Lissette villegas Referred To Contact Orthopedic Surgery: Hand Surgery / Orthopedic Surgery Diagnoses Paronychia of finger of left hand Livan Smith, [address] [place] [address] [facility] [place] [address] [place] [address] Referral ID Status Reason Start Date Expiration Date V isits Requested Visits Authorized [id number] Open Specialty Services Required 06/06/2022 06/06/2023 1 1 Scheduling Instructions [facility]Wrist Upper Extremities [facility] [address] [place] [address] Comments The patient can be scheduled with any member of the group, including the provider with the first available appointments. 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 Other osteomyelitis of left hand (HCC) Procedures MRI Upper Extremity Left WO JT W Keila Cameron MD [address] [place] [address] Referral ID Status Reason Start Date Expiration Date Visits Re quested Visits Authorized [id number] Closed 06/29/2022 06/29/2023 1 1 Advance Directives No Advanced Directives Records FoundLatest Code Status on File Code Status Date Activated Date Inactivated Comments Full Code 07/07/2022 12:59 PM Summary Purpose Family History No Family History Records FoundNo Family History Records FoundNo Family History Records Found No data available for this section No Family History Records FoundNo Family History Records FoundNo Family History Records Found Additional Source Comments Reason for Visit (unrecogniz ed section and content) 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 Ordered Prescriptions (unrec ognized section and content) Prescription Sig Dispensed Refills Start Date End Da te oxyCODONE-acetaminophen (PERCOCET) 5-325 MG per tabletIndications:Status post surgical amputation of finger of left hand Take 1 tablet by mouth every 6 hours as needed for Pain for up to 7 days. Intended supply: 7 days. Take lowest dose possible to manage pain 28 tablet 0 07/07/2022 07/14/2022 Scheduled Active and Recently Administ ered Medications (unrecognized section and content) Scheduled Medication Order 07/05/2022 07/06/2022 07/07/2022 acetaminophen (TYLENOL) tablet 1,000 mg (COMPLETED) 1,000 mg, Oral, ONCE, 1 dose, On Sun07/07/22 at 1315, Maximum dose of acetaminophen is 4000 mg from all sources in 24 hours. Do not administer if patient has taken tylenol <4 hours earlier. Do not give if contraindicated ie. patient has active liver disease or cirrhosis., Pre-op (day of surgery) 1337 (Given - Provid er: Kasey Forte RN) ceFAZolin (ANCEF) 2000 mg in dextrose 4 % 100 mL IVPB (premix) (COMPLETED) 2,000 mg, IntraVENous, SENIOR ACCOUNTING ASSOCIATE TO O.R., 1 dose, On Sun07/07/22 at 1315, Antimicrobial Indications: Surgical Prophylaxis, Administer within 1 hour prior to incision. Recommend to repeat in 3-4 hours after initial dose if still intra-op., Pre-op (day of surgery) 1542 (New Bag - Prov ider: Brigitte Moctezuma RN - Comment: given in OR)1612 (Due: Stopped - Provider: Brigitte Moctezuma RN) famotidine (PEPCID) tablet 20 mg (COMPLETED) 20 mg, Oral, ONCE, 1 dose, On Sun07/07/22 at 1315, Pre-op (day of surgery) 1337 (Given - Provid er: Kasey Forte RN) sodium chloride flush 0.9 % injection 5-40 mL 5-40 mL, IntraVENous, EVERY 12 HOURS SCHEDULED (2 times per day), First dose on Sun07/07/22 at 2100, Until Discontinued, For Line Patency: Peripheral IV = 5 mL; Midline or Central Line = 10 mL/lumen. If following IV push medication, administer flush at same rate as the IV push. Flush volume is determined by type of infusion therapy being given. For non-viscous solutions use: Peripheral IV = 5 mL Midline or Central Line = 10 mL/lumen For viscous solutions (i.e. blood components, parenteral nutrition, contrast media, or after obtaining blood sample) use: Peripheral IV = 10 mL Midline or Central Line = 20 mL/lumen, Pre-op (day of surgery) 2100 (Due) sodium chloride flush 0.9 % injection 5-40 mL 5-40 mL, IntraVENous, EVERY 12 HOURS SCHEDULED (2 times per day), First dose on Sun07/07/22 at 2100, Until Discontinued, For Line Patency: Peripheral IV = 5 mL; Midline or Central Line = 10 mL/lumen. If following IV push medication, administer flush at same rate as the IV push. Flush volume is determined by type of infusion therapy being given. For non-viscous solutions use: Peripheral IV = 5 mL Midline or Central Line = 10 mL/lumen For viscous solutions (i.e. blood components, parenteral nutrition, contrast media, or after obtaining blood sample) use: Peripheral IV = 10 mL Midline or Central Line = 20 mL/lumen, PACU only 2100 (Due) Continuous Medication Order 07/05/2022 07/06/2022 07/07/2022 lactated ringers infusion IntraVENous, at 50 mL/hr, CONTINUOUS, Starting on Sun07/07/22 at 1315, Upon admission to sameday - please start iv if patient does not have iv access. Use 500ml NS for patients on dialysis., Pre-op (day of surgery) 1337 (New Bag - Prov ider: Kasey Forte RN) lactated ringers infusion IntraVENous, at 50 mL/hr, CONTINUOUS, Starting on Sun07/07/22 at 1600, PACU only 1600 (Due) PRN Medication Order 07/05/2022 07/06/2022 07/07/2022 0.9 % sodium chloride bolus 500 mL (5.51 mL/kg), IntraVENous, at 1,000 mL/hr, Administer over 0.5 Hours, PRN, Anti-nausea, Starting on Sun07/07/22 at 1543, PACU only 0.9 % sodium chloride infusion IntraVENous, at 5-250 mL/hr, PRN, if patient receiving piggyback infusions and maintenance fluids are not ordered OR KVO fluids to protect IV site / prevent frequent line interruptions/ long duration, Starting on Sun07/07/22 at 1259, For piggyback infusion, administer at same rate as piggyback for a total of 25 mL. Enter 25 mL into dose field and piggyback rate into rate field of order. If piggyback is infusing at a rate less than 100 mL/hr, enter 25 mL into dose field and 100 mL/hr into rate field of order. For KVO fluids, enter rate of 20 mL/hr or less into rate field of order., Pre-op (day of surgery) diphenhydrAMINE (BENADRYL) injection 12.5 mg 12.5 mg, IntraVENous, ONCE PRN, 1 dose, Starting on Sun07/07/22 at 1543, Until 07/08/22 at 1543, Itching, PACU only hydrALAZINE (APRESOLINE) injection 5 mg(Linked Group 1) 5 mg, IntraVENous, EVERY 10 MIN PRN, 2 doses, Starting on Sun07/07/22 at 1543, Until Discontinued, High Blood Pressure, for SBP greater than 160 mmHg for 2 consecutive measurements taken from different sites, PRN for SBP > 160 for 2 consecutive measurements, and if one of the following conditions is met: 1) If IV labetolol is ineffective. 2) If HR is under 60. 3) If patient has heart block, COPD or asthma. If both labetalol and hydralazine ineffective, notify anesthesiologist. for use S[employer]ay and, PACU only labetalol (NORMODYNE;TRANDATE) injection 5 mg(Linked Group 1) 5 mg, IntraVENous, EVERY 10 MIN PRN, 2 doses, Starting on Sun07/07/22 at 1543, Until Discontinued, High Blood Pressure, for SBP greater than 160 mmHg for 2 consecutive measurements taken from different sites., PRN for SBP >160 for 2 consecutive measurements, if HR is 60 or greater. If beta rafia is contraindicated (HR less than 60, heart block, COPD or asthma) use hydralazine IV order. for use Sameday and, PACU only lidocaine PF 1 % injection 1 mL 1 mL, IntraDERmal, ONCE PRN, 1 dose, Starting on Sun07/07/22 at 1259, Until 07/08/22 at 1259, IV start, Pre-op (day of surgery) LORazepam (ATIVAN) injection 0.5 mg 0.5 mg, IntraVENous, ONCE PRN, 1 dose, Starting on Sun07/07/22 at 1543, Until 07/08/22 at 1543, for anxiety or muscle spasm., PACU only ondansetron (ZOFRAN) injection 4 mg 4 mg, IntraVENous, ONCE PRN, 1 dose, Starting on Sun07/07/22 at 1543, Until 07/08/22 at 1543, Nausea, Initial antiemetic therapy., PACU only oxyCODONE (ROXICODONE) immediate release tablet 10 mg (COMPLETED) 10 mg, Oral, PRN, 1 dose, Starting on Sun07/07/22 at 1543, Until Sun07/07/22 at 2359, Pain Severe (7-10), PHASE II, PACU only 1612 (Given - Provid er: Brigitte Moctezuma RN) sodium chloride flush 0.9 % injection 5-40 mL 5-40 mL, IntraVENous, PRN, Starting on Sun07/07/22 at 1259, Until Discontinued, Line Care, After every IV line use, For Line Patency: Peripheral IV = 5 mL; Midline or Central Line = 10 mL/lumen. If following IV push medication, administer flush at same rate as the IV push. Flush volume is determined by type of infusion therapy being given. For non-viscous solutions use: Peripheral IV = 5 mL Midline or Central Line = 10 mL/lumen For viscous solutions (i.e. blood components, parenteral nutrition, contrast media, or after obtaining blood sample) use: Peripheral IV = 10 mL Midline or Central Line = 20 mL/lumen, Pre-op (day of surgery) sodium chloride flush 0.9 % injection 5-40 mL 5-40 mL, IntraVENous, PRN, Starting on Sun07/07/22 at 1543, Until Discontinued, Line Care, After every IV line use, For Line Patency: Peripheral IV = 5 mL; Midline or Central Line = 10 mL/lumen. If following IV push medication, administer flush at same rate as the IV push. Flush volume is determined by type of infusion therapy being given. For non-viscous solutions use: Peripheral IV = 5 mL Midline or Central Line = 10 mL/lumen For viscous solutions (i.e. blood components, parenteral nutrition, contrast media, or after obtaining blood sample) use: Peripheral IV = 10 mL Midline or Central Line = 20 mL/lumen, PACU only Linked Groups Order Group 1: labetalol (NORMODYNE;TRANDATE) injection 5 mgJump to med 5 mg, IntraVENous, EVERY 10 MIN PRN, 2 doses, Starting on Sun07/07/22 at 1543, Until Discontinued, High Blood Pressure, for SBP greater than 160 mmHg for 2 consecutive measurements taken from different sites.
PRN for SBP >160 for 2 consecutive measurements, if HR is 60 or greater. If beta rafia is contraindicated (HR less than 60, heart block, COPD or asthma) use hydralazine IV order. for use Sameday and
PACU only Or hydrALAZINE (APRESOLINE) injection 5 mgJump to med 5 mg, IntraVENous, EVERY 10 MIN PRN, 2 doses, Starting on Sun07/07/22 at 1543, Until Discontinued, High Blood Pressure, for SBP greater than 160 mmHg for 2 consecutive measurements taken from different sites
PRN for SBP > 160 for 2 consecutive measurements, and if one of the following conditions is met: 1) If IV labetolol is ineffective. 2) If HR is under 60. 3) If patient has heart block, COPD or asthma. If both labetalol and hydralazine ineffective, notify anesthesiologist. for use Same and
PACU only (unrecognized sect ion and content) No Status Records FoundNo Status Records FoundNo Status Records FoundNo Status Records FoundNo Status Records FoundNo Status Records Found INFORMATION SOURCE (unrecogn ized section and content) DATE CREATED AUTHOR AUTHOR'S ORGANIZ ATION 08/05/2022 [facility] DATE CREATED AUTHOR AUTHOR'S ORGANIZ ATION 10/03/2022 [facility] DATE CREATED AUTHOR AUTHOR'S ORGANIZ ATION 07/07/2023 [facility] ([place] DATE CREATED AUTHOR AUTHOR'S ORGANIZ ATION 10/12/2023 [facility] DATE CREATED AUTHOR AUTHOR'S ORGANIZ ATION 10/14/2023 [facility] Source Comments (unrecognize d section and content) In the event this informatio n is protected by the Federal Confidentiality of Alcohol and Drug Abuse Patient Records regulations: The Federal rules restrict any use of the information to criminally investigate or prosecute any alcohol or drug abuse patient.[facility] the event this information is protected by the Federal Confidentiality of Alcohol and Drug Abuse Patient Records regulations: The Federal rules restrict any use of the information to criminally investigate or prosecute any alcohol or drug abuse patient.[facility] the event this information is protected by the Federal Confidentiality of Alcohol and Drug Abuse Patient Records regulations: The Federal rules restrict any use of the information to criminally investigate or prosecute any alcohol or drug abuse patient.[facility] the event this information is protected by the Federal Confidentiality of Alcohol and Drug Abuse Patient Records regulations: The Federal rules restrict any use of the information to criminally investigate or prosecute any alcohol or drug abuse patient.[facility] Center[facility] the event this information is protected by the Federal Confidentiality of Alcohol and Drug Abuse Patient Records regulations: The Federal rules restrict any use of the information to criminally investigate or prosecute any alcohol or drug abuse patient.[facility] Center[facility] the event this information is protected by the Federal Confidentiality of Alcohol and Drug Abuse Patient Records regulations: The Federal rules restrict any use of the information to criminally investigate or prosecute any alcohol or drug abuse patient.[facility] Care Teams (unrecognized sec tion and content) Flower Machine Operator Relationship Specialty Start Date End Date Mauro Watts MD [address] [place] [address] PCP - General Family Medicine 08/28/22 Flower Machine Operator Relationship Specialty Start Date End Date Mauro Watts MD [address] [place] [address] PCP - General Family Medicine 08/28/22 Flower Machine Operator Relationship Specialty Start Date End Date Mauro Watts MD [address] [place] [address] PCP - General Family Medicine 08/28/22 Flower Machine Operator Relationship Specialty Start Date End Date Mauro Watts MD [address] [place] [address] PCP - General Family Medicine 08/28/22 Flower Machine Operator Relationship Specialty Start Date End Date Charlotte Lai DO [address] [facility], [place] [place], [place] [id number] PCP - General Internal Medicine 07/09/23 FOR RECORDS PERTAINING TO PATIENTS WHO ARE OR HAVE BEEN ENROLLED IN A CHEMICAL DEPENDENCY/SUBSTANCEABUSE PROGRAM, SOME INFORMATION MAY BE OMITTED. This clinical summary was aggregated from multiple sources. Caution should be exercised in using it in the provision of clinical care. This summary normalizes information from multiple sources, and as a consequence, information in this document may materially change the coding, format and clinical context of patient data. In addition, data may be omitted in some cases. CLINICAL DECISIONS SHOULD BE BASED ON THE PRIMARY CLINICAL RECORDS. [facility]. provides no warranty or guarantee of the accuracy or completeness of information in this document.
[2023-10-18] MEDS: Lactated Ringers 1,000 ML 15 ML IV (06:23)
--- NOTE | 2023-10-18 07:07 | PCM.HP.STD ---
HPI - General HPI Narrative ALFREDA HAN, is a 58 M who presents for left shoulder arthroscopy, subacromial decompression, rotator cuff repair, biceps tenodesis. no changes to h and p. left shoulder marked. no block due to pulm bleb and emphysema. rab, narcotic counselling and post op care discussed. ok to proceed. MR#: [id number] Acct: [id number] Name: ALRFEDA HAN Rep #: [id number] : 1965 Provider: Dr. Livan Dietz MD Age/Sex: 58/M Location: [facility] [place] Status: Signed Intake Vital Signs 08/16/2309:10 09/20/2407:45 Height 5 ft 8 in 5 ft 8 in Weight: 186 lb 4 oz BMI 28.3 Intake Visit Reasons: LEFT SHOULDER Accompanied by: Is patient in pain?: Yes Pain scale (1-10): 6 Allergies No Known Allergies Allergy (Verified 09/20/23 08:48) Medications acetaminophen 325 mg capsule (Tylenol) 325 mg PO ONCE PRN 09/20/23 [History Confirmed 09/20/23] ibuprofen 200 mg capsule 200 mg PO Q6H PRN 09/20/23 [History Confirmed 09/20/23] lisinopril 10 mg tablet 10 mg PO DAILY 09/20/23 [History Confirmed 09/20/23] meloxicam 7.5 mg tablet 7.5 mg PO BID PRN pain shoulder #30 tabs 09/20/23 [Rx Confirmed 09/20/23] naproxen 250 mg tablet 250 mg PO BID PRN 09/20/23 [History Confirmed 09/20/23] PFSH Medical History (Updated 09/20/23 @ 09:11 by Livan Dietz MD) Impingement of left shoulder Left rotator cuff tear Left shoulder pain Pneumothorax Tendinopathy of left biceps tendon Surgical History History of appendectomy Social History Smoking Status: Current every day smoker tobacco type: cigarettes HPI LEFT SHOULDER Details: This documentation accurately reflects the service provided and the decisions made by me, Dr. Livan Dietz MD 09/20/23 0844. Part of today?s visit was documented by [ ], acting as scribe. ALFREDA HAN is a 58 year old M here today for L shoulder pain... 3 months ago, caught a hot water tank, pop and pain going down the air. worse at night. 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 [place] - tylenol, nsaids otc medications icy hot. here w SO. hurts lateral and anterior, going down the arm. quite painful, not interested in PT or injections. hard to lift overhead. feels weak. Ortho Exam General General: Yes no acute distress Neurologic: Yes alert and Yes oriented x3 Psychologic: Yes reasonable and appropriate Left Shoulder Skin/Wound: Yes CDI, No ecchymosis, No erythema and No swelling Testing: Yes Hawkin's, Yes Neer's, Yes Speed's, Yes TTP Biceps, No TTP AC Joint, Yes empty can, No [place] and No scapular winging SHOULDER: normal motor and sens to axillary N, MRU and AIN/PIN. Hand warm well perfused normal radial pulse active fe 120, passive 160, er 40, IR back pocket. strength fe 4, ER 4+. Supplemental Info [facility] Imaging Services [address] [place] [address] Upper Ext Joint Only(Routine) MR#: [id number] Acct: [id number] Name: ALFREDA HAN Rep #: [id number] : 1965 M 58 From: Keaton Hernandez MD PCP: Dr. Sheridan Lai, DO Status: REG CLI Study: Upper Ext Joint Only(Routine) Date of Exam: 09/07/23 Exam# [id number] Ordering Dr: Darell Sultana PA-C STUDY: MRI LEFT SHOULDER REASON FOR EXAM: Male, 58 years old. Sprain. Left shoulder pain, status post lifting injury x 3 months, limited range of motion, pain in shoulder and scapula, throbbing, sharp, popping, no surgery on shoulder. TECHNIQUE: Standardized fat and water weighted pulse sequences were obtained in all 3 orthogonal planes. COMPARISON: None. FINDINGS: There is a full-thickness tear of the distal supraspinatus tendon, overall measuring 1.8 cm in length (coronal T2 series 6 images 11-15) and 2.0 cm in width (sagittal T2 series 7 images 12-16). There is mild infraspinatus and subscapularis tendinosis. Normal teres minor tendon. Normal supraspinatus muscle. Normal infraspinatus muscle. Normal subscapularis muscle. Normal teres minor muscle. There is tendinosis and partial tearing of the long biceps tendon. There is a small glenohumeral joint effusion with fluid communicating into the subacromial-subdeltoid bursa. Intact humeral head and visualized proximal humerus. Normal labrum. Normal capsulo-ligamentous complex. There is mild hypertrophic acromioclavicular arthrosis, with inferior osteophyte formation, with minimal effacement of the supraspinatus myotendinous junction. There is a Type II morphology (curved), with a neutral orientation. There is no subacromial-subdeltoid bursal fluid. Normal visualized coracohumeral and coracoacromial ligaments. Normal quadrilateral space. Normal axillary space. Normal deltoid muscle. Normal trapezius muscle. MRI/Upper Ext Joint Only(Routine) IMPRESSION: 1.8 x 2.0 cm full-thickness tear of the distal supraspinatus tendon. Mild infraspinatus and subscapularis tendinosis. Mild hypertrophic acromioclavicular arthrosis, with inferior osteophyte formation, with minimal effacement of the supraspinatus myotendinous junction. Small glenohumeral joint effusion with fluid communicating into the subacromial-subdeltoid bursa. Tendinosis and partial tearing of the long biceps tendon. Electronically Signed: Keaton Hernandez MD at 12:50 EST Reading Location ID and State: [address] [place] [address] , Service support , Coding Level of Care Code Off vis,new,level 4 Diagnoses Left shoulder pain M25.512 Impingement of left shoulder M25.812 Left rotator cuff tear M75.102 Tendinopathy of left biceps tendon M67.922 Assessment and Plan Assessment and Plan (1) Left shoulder pain: Status: Acute Plan: ALFREDA HAN is a 58 year old M here today for L shoulder pain... MRI demonstrating tear of the supraspinatus tendon partial tearing of the biceps and impingement from the acromion. Patient can try rest ice anti-inflammatories activity modifications cortisone injections or surgical management. I counseled on the diagnosis prognosis different treatment options. The tear can stay the same for many years it may get bigger. Typically these do not heal on their own. That being said surgery is no guarantee that the tendon heals or never tears again. The patient is more interested in surgical management that would be in the form of left shoulder arthroscopy, subacromial decompression, rotator cuff repair, biceps tenodesis. Explained the pros cons risk benefits as well as recovery 2 weeks in a sling after 3 to 6 months before going back to any sort of significant overhead lifting. Patient understands and consent form for surgery as well as possible need for blood products. I did let the patient know that there is an increased chance of infections and delayed or not healing of the tear or pain or stiffness due to the smoking history. Pros and cons risks and benefits were discussed with the patient including but not limited to infection, pain, stiffness, bleeding, damage to surrounding structures, neurovascular injury, recurrence or retear, failure or wear of hardware or fixation, instability, fracture, deep vein thrombosis and pulmonary embolism, anesthetic risks, , patient dissatisfaction, need for further surgery and other risks. Patient understood and wished to proceed with surgery, and signed the informed consent documentation. (2) Impingement of left shoulder: Status: Acute (3) Left rotator cuff tear: Status: Acute (4) Tendinopathy of left biceps tendon: Status: Acute Medications: [facility] Medical History (Updated 10/08/23 @ 13:23 by Asia Leon) Alcohol use Anxiety Arthritis Hypertension Impingement of left shoulder Left rotator cuff tear Left shoulder pain Leg cramps Pneumothorax Shortness of breath on exertion Smoker Tendinopathy of left biceps tendon Wears glasses Home Medications acetaminophen 325 mg capsule (Tylenol) 325 mg PO ONCE PRN pain 09/20/23 [History Last Taken Unknown] ibuprofen 200 mg capsule 200 mg PO Q6H PRN pain 09/20/23 [History Last Taken Unknown] lisinopril 10 mg tablet 10 mg PO DAILY 09/20/23 [History Last Taken 10/18/23] meloxicam 7.5 mg tablet 7.5 mg PO BID PRN pain shoulder #30 tabs 09/20/23 [Rx Last Taken Unknown] prednisone 5 mg tablets in a dose pack See Rx Instructions PO PER PKG DIR pain shoulder #21 tabs 09/24/23 [Rx Last Taken Unknown] Allergy/AdvReac Type Severity Reaction Status Date / Time No Known Allergies Allergy Verified 10/08/23 13:10 Surgical History (Updated 10/08/23 @ 13:14 by Asia Leon) History of appendectomy History of colonoscopy History of esophagogastroduodenoscopy (EGD) Social History Smoking Status: Current every day smoker tobacco type: cigarettes Vital Signs Vital Signs Vital Signs: 10/18/23 06:24 10/18/23 06:24 Temperature 98.4 F Temperature Source Temporal Pulse Rate 72 Respiratory Rate 18 Respiratory Pattern Normal Blood Pressure 154/87 H Blood Pressure Mean 109 Blood Pressure Source Monitor Blood Pressure Position Semi-Fowlers Blood Pressure Location Left Arm Pulse Ox 94 Oxygen Delivery Method Room Air Weight Weight: 182 lb 6.4 oz Body Mass Index (BMI) 27.7 Results Lab / Micro Data 10/09/23 12:19
[2023-10-18] MEDS: Cefazolin 2 GM in 0.9% Normal Saline (100mL Bag) 100 ML IV (07:26)
--- NOTE | 2023-10-18 07:30 | TESH_PTH ---
PATHOLOGY RESULTS PATIENT: ALFREDA [place]AN [place] [facility] [id number] AGE/SX: 58/M ROOM: RE10/18/[address]: Dr. Livan Dietz MD : 1965 BED: DIS: 10/18/2023 SPEC #: [id number] RECD: 10/18/23 10:52 STATUS: EDWIN BOYD #: [id number] [place]: 10/18/23 07:[address]: Livan Dietz DEPT: SURGICAL PATHOLOGY RECD BY: Otilia Velasquez ENTERED: 10/18/23 11:31 SP TYPE: TENDON OTHR DR: Dr. Sheridan Lai, DO Tissues: Tendon and tendon sheath, NOS Procedures: Surgery Specimen Level III HEADER OPERATION: Left shoulder arthroscopy, subacromial decompression PRE-OP DIAGNOSIS: Left shoulder pain, impingement of left shoulder, left rotator cuff tear, tendinopathy of left biceps tendon TISSUE SUBMITTED: Biceps tendon MICROSCOPIC DIAGNOSIS Biceps tendon, excision: Fibrofatty and fibrotendinous tissue with degenerative changes. AM:dione 10/19/2023 MICROSCOPIC DESCRIPTION Slides are reviewed. GROSS DESCRIPTION Received in fixative is one container labeled with the patient's name and designated biceps tendon. The specimen consists of a piece of pink-red soft tissue measuring 6.0 x 0.6 x 0.3 cm. The entire specimen is submitted in one cassette. / SJ:dione 10/18/2023 TC:5 CPT: 17684
[2023-10-18] MEDS: Epinephrine (1 mg/ml) 1 MG/ML VIAL (07:54)
[2023-10-18] MEDS: Bupivacaine 0.25% 30 ML Vial (09:58)
--- NOTE | 2023-10-18 10:05 | OP.PCM_ITS ---
Problems Associated Problem List Diagnoses (1) Left rotator cuff tear: (2) Impingement of left shoulder: (3) Tendinopathy of left biceps tendon: Report of Operation Date of Procedure: 10/18/23 Pre-Operative Diagnosis: Left shoulder rotator cuff repair impingement syndrome and biceps tendinopathy Post-Operative Diagnosis: Same Surgery/Procedure Performed:: Left shoulder arthroscopy, rotator cuff repair, biceps tenodesis Surgeon: Livan Dietz Type of Anesthesia: General and Local Anesthesiologist: Jeremiah Garland Estimated Blood Loss (mL): 50 Description of Procedure: Patient brought the operating room theater. Placed supine on the table. General anesthesia induced. 2 g IV Ancef given prior to start of procedure. Patient transferred left side up lateral decubitus beanbag positioner. Axillary roll used. All bony prominences padded. SCDs on the leg. Upper extremity 10 pounds inline traction with 35 degrees of abduction. Upper extremity prepped and draped in the usual sterile fashion chlorhexidine-based prep solution migraine 3 minutes drying time prior to draping. Preoperative timeout performed to confirm the site patient the surgery. Began by inserting the arthroscope into the intra-articular portion the shoulder. Did an inside out anterior localized with spinal needle localization portal through the rotator interval just posterior to the biceps tendon. There is some minor grade 1-2 changes at the humeral head and glenoid. Fraying of the labrum. Biceps was subluxed and degenerative appearing. I performed an intra- articular biceps tenotomy. There is an obvious full-thickness rotator cuff tear the entire width of the supraspinatus tendon with reTraction to approximately the joint line. Farrell shaped. Axillary recess normal. Subscapularis Normal. Arthroscopy pictures taken and saved onto the system. Gentle debridement was performed and some minor amount of synovitis removed from the anterior aspect of the shoulder. I then placed the scope into the subacromial space. I remove the bursa. Did a small amount of shaving undersurface the acromion although the space was already large and flat. I assessed the mobility of the tear. The mobility was reasonable but I did have to medialize the repair slightly. I remove the remaining soft tissue from the greater tuberosity and used the Arthrex power pick instrument for multiple trephination's of the greater tuberosity to stimulate healing. I did Arthrex double row repair with medial knotless fabian system. I placed 2 knotless all suture Arthrex self punching 2.6 mm anchors at the medial row at the articular margin. I passed the sutures up through the tendon for the X configuration as well as the medial fabian I placed the slightly outside the suture with splice. I then used the repair suture through the loop mechanism of the other suture anchor. I used a fiber link to pull trac tion on the tendon to reduce this to the footprint and then did the knotless medial row horizontal mattress suture both sutures cut the suture short this achieved good compression to the articular margin of the footprint. I then used the box and X configuration with 1 limb from each suture to a self punching 4.75 mm Arthrex bio composite swivel lock anchor. This achieved good compression at the footprint no dogear so I removed the stay suture. Very slight uncoverage anteriorly. Next I turned my attention to the open part of the procedure. Made a longitudinal incision over the long head of biceps tendon at the upper proximal medial aspect of the humerus. Carried dissection down through skin and subcutaneous tissue incised the fascia in line with skin incision. I did have to extend the incision slightly more than would be typical about 3.5 inches long as his biceps was fairly diminutive and thin as I did note intra-articularly, and was adhesed to the groove proximally. Likely was partially torn prior to surgery. I placed 5 locking suture limbs through the tendon using the Arthrex Chandana needle with loop suture. I locked this distally. I shorten the biceps tendon. I used a spade tip drill bit to drill a bicortical hole. I flipped the button on the far cortex delivered the tendon into the repair tunnel. I then passed 1 suture limb back through the tendon and 5 interrupted half hitches with the sutures cut short to lock the tendon in place. Wounds were thoroughly irrigated subcutaneous tissue closed with 2-0 Vicryl suture and skin with 3-0 Monocryl. Skin cleaned with wet and dry dressing. 10 cc of quarter percent bupivacaine for local anesthesia. Skin cleaned with wet dry dressing followed application of Steri-Strips Adaptic 4 x 4 gauze ABD dressing and cloth tape with a sling for the upper extremity. Patient woken up from a general anesthetic transferred off the operating table and taken postanesthetic care unit in stable condition. All sponge needle i nstrument counts were correct. cpt 28736?and 71169 Complications none Admit VTE Documentation VTE Present on Admission: No VTE Mechan Device Prophylaxis: SCD's VTE Pharm Prophylaxis ordered?: No Reason prophylaxis not ordered:: Treatment Not Indicated Procedures Musculoskeletal 20xxx-29xxx: Other Procedure See Report
--- NOTE | 2023-10-18 10:16 | DCINST_ITS ---
Discharge Instructions Diet Discharge Diet: No restrictions Activity Ice area for (Minutes): 10 Lifting Restrictions: pendulums 4x/day and hand wrist elbow rom prn Dressing / Incision Call your doctor if your incision/area has: Continuous Slow Oozing, Sudden Increased Bleeding, Increased Pain/ Swelling, Increased Redness, Foul Smelling Discharge and Swelling at the incision site Remove Dressing in: leave in place till F/U Follow Up Care Please Follow Up With: Livan Dietz MD When: 2 days Test Results: Test results from this visit will be discussed in further detail at your follow- up appointment, if applicable. Discharge Plan Admission Attending Provider: Livan Dietz Primary Care Provider: Sheridan Lai Discharge Orders/Prescriptions Prescriptions: New oxycodone-acetaminophen [Percocet] 5-325 mg tablet 1 tab PO Q4H MDD 6 PRN (Reason: pain) 5 Days Qty: 30 0RF No Action lisinopril 10 mg tablet 10 mg PO DAILY Patient Comments: TAKE 1 TABLET BY MOUTH EVERY DAY acetaminophen [Tylenol] 325 mg capsule 325 mg PO ONCE PRN (Reason: pain) ibuprofen 200 mg capsule 200 mg PO Q6H PRN (Reason: pain) meloxicam 7.5 mg tablet 7.5 mg PO BID MDD 2 PRN (Reason: pain shoulder) Qty: 30 0RF prednisone 5 mg tablets,dose pack See Rx Instructions PO PER PKG DIR MDD per package Qty: 21 0RF Rx Instructions: PO PER PKG DIR Other Ambulatory Orders: 12 Lead EKG (Routine) Timeframe: 20231009 Location: None Selected Ordered By: Dr. Jeremiah Garland Referrals / Follow Up: Sheridan Lai DO [Primary Care Provider] - Livan Dietz MD [Med Staff - Active Staff] - Disposition Disposition (needs filled in before D/C Order can be placed): Home, Self Care
[2023-10-18] MEDS: Ketorolac 30 MG/ML Syringe IV (10:58)
[2023-10-18] MEDS: Gabapentin 300 MG Capsule PO (11:33)
[2023-10-18] MEDS: Oxycodone/Apap 5/325 Tablet PO (12:17)
== END 2023-10-18 13:25 | disposition home or self-care (01) ==
LOC: SDC 05:48 → AC 06:17
PROVIDERS: Anesthesiology; PCP Internal Medicine; Referring Provider Orthopaedic Surgery Sports Medicine; Visit Provider Orthopaedic Surgery Sports Medicine
PROC: (CPT 29805; principal; 2023-10-18 07:10)
DX: S46.012A Strain of muscle(s) and tendon(s) of the rotator cuff of left shoulder, initial encounter (principal); M25.812 Other specified joint disorders, left shoulder; F17.210 Nicotine dependence, cigarettes, uncomplicated; M67.922 Unspecified disorder of synovium and tendon, left upper arm; Z79.899 Other long term (current) drug therapy; X58.XXXA Exposure to other specified factors, initial encounter; I10 Essential (primary) hypertension
CPT/HCPCS: 29827; 29828; 01630; 36415; 85027; 88304; 93005; J7120; J2405

== ENCOUNTER → 2024-07-28 | Outpatient (CLI) | payer MEDICAID, SELFPAY ==
--- NOTE | 2024-07-28 10:50 | MRI_ITS ---
STUDY: MRI RIGHT SHOULDER REASON FOR EXAM: Male, 59 years old. Pain with limited range of motion. No known injury. TECHNIQUE: Standardized fat and water weighted pulse sequences were obtained in all 3 orthogonal planes. COMPARISON: Right shoulder radiographs dated 06/09/2024. FINDINGS: There is a full-thickness tear of the distal supraspinatus tendon, overall measuring 2.4 cm in length (coronal T2 series 6 images 12-16) and 2.6 cm in width (sagittal T2 series 7 images 12-17). There is infraspinatus and subscapularis tendinosis. Normal teres minor tendon. Normal supraspinatus muscle. Normal infraspinatus muscle. Normal subscapularis muscle. Normal teres minor muscle. There is mild glenohumeral arthrosis with small marginal osteophyte formation and low-grade chondromalacia. There is a small glenohumeral joint effusion with fluid communicating into the subacromial-subdeltoid bursa. Intact humeral head and visualized proximal humerus. Normal labrum. Normal capsulo-ligamentous complex. There are postoperative changes related to biceps tenodesis. There is mild hypertrophic acromioclavicular arthrosis. There is a Type II morphology (curved), with a neutral orientation. Normal visualized coracohumeral and coracoacromial ligaments. Normal quadrilateral space. Normal axillary space. Normal deltoid muscle. Normal trapezius muscle. MRI/Upper Ext Joint Only(Routine) IMPRESSION: 2.4 x 2.6 cm full-thickness tear of the distal supraspinatus tendon. Infraspinatus and subscapularis tendinosis. Mild glenohumeral arthrosis. Small glenohumeral joint effusion with fluid communicating into the subacromial-subdeltoid bursa. Mild hypertrophic acromioclavicular arthrosis. Electronically Signed: Keaton Hernandez MD at 9:03 EST ,
== END | disposition home or self-care (01) ==
PROVIDERS: PCP Internal Medicine; Referring Provider Orthopaedic Surgery Sports Medicine; Visit Provider Orthopaedic Surgery Sports Medicine
DX: M25.511 Pain in right shoulder (principal); M25.811 Other specified joint disorders, right shoulder
CPT/HCPCS: 73221

== ENCOUNTER 2024-10-29 06:43 | Day surgery (SDC) | payer MEDICAID, SELFPAY ==
--- NOTE | 2024-10-21 13:29 | EKG12_ITS ---
Test Reason : PRE OP Blood Pressure : */* mmHG Vent. Rate : 82 BPM Atrial Rate : 82 BPM P-R Int : 100 ms QRS Dur : 78 ms QT Int : 366 ms P-R-T Axes : 11 64 34 degrees QTcB Int : 427 ms Sinus rhythm with short MI Abnormal ECG Confirmed by NAVA HONG, MIROSLAVA ([id number]), commissioning editor EMBER WADE ([id number]) on 10/22/2024 7:40:23 AM Referred By: Livan Dietz Confirmed By: MIROSLAVA VICK MD
[2024-10-21 14:04] LABS: Hematocrit 41.2 % (40-54); Hemoglobin 14.1 g/dL (13.0-16.5); Mean Corp Hgb Conc 34.2 g/dL (32-36); Mean Corpuscular Hgb 30.8 pg (27.0-32.0); Mean Platelet Vol. 9.4 fl (6.2-12.0); Platelet Count 257 K/mm3 (150-450); RBC Distribution Width CV 12.7 % (11.6-14.6); RBC Distribution Width SD 41.8 fl (35.1-43.9); Red Blood Count 4.58 M/mm3 (4.6-6.2); White Blood Count 10.5 K/mm3 (4.4-11.0)
--- NOTE | 2024-10-22 08:58 | PAT.ANE_ITS ---
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 When Was Last Pacemaker Check QUESTION #4 FULL TEXT: You/Your Family Experience fever (hyperthermia) with Anesthesia Last Oral Intake Last Oral intake: Last Oral Intake NPO since Meds taken in AM with sips of water? Meds patient instructed to take am of surgery PONV PONV - automobile leasing supervisor: PONV - automobile leasing supervisor Female No 10/20/24 10:01 HX of Motion Sickness No 10/20/24 10:01 HX of N/V After Surgery No 10/20/24 10:01 Non-Smoker No 10/20/24 10:01 Duration of Surgery greater Yes 10/20/24 10:01 than 60 minutes Number of Risk Factors 1 10/20/24 10:01 PONV Score Low Risk 10/20/24 10:01 Height & Weight Height & Weight: Anesthesia: Height & Weight Height 5 ft 8 in 08/25/24 13:15 Respiratory Assessment Respiratory Assessment - automobile leasing supervisor: Respiratory Tract Infection Hx - automobile leasing supervisor Hx Respiratory Tract Infection No 10/20/24 10:01 STOP Sleep Apnea STOP Sleep Apnea - automobile leasing supervisor: STOP Sleep Apnea - automobile leasing supervisor Hx Hypertension Yes: CONTROLLED WITH MED 10/20/24 10:01 Hx Sleep Apnea No 10/20/24 10:01 CPAP BIPAP Do you snore loudly (louder No 10/20/24 10:01 than talking or can be heard Do you often feel tired/ No 10/20/24 10:01 fatigued/ sleepy during daytime? Has anyone observed you stop No 10/20/24 10:01 breathing during sleep? STOP Results Negative 10/20/24 10:01 QUESTION #5 FULL TEXT : Do you snore loudly (louder than talking or can be heard through closed doors)? 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 Specify any problems Hx of Preganancy in last 3 N/A 10/20/24 10:01 Months Nurse Filling Out Transfusion DSCHRIBER 10/20/24 10:01 & Questions: Date: 10/20/24 10/20/24 10:01 Time: 10:02 10/20/24 10:01 Patient unable to answer at this time (ie. confused, unrespo /Reproduction History /Reproductive History - automobile leasing supervisor: /Reproductive Hx- automobile leasing supervisor Hx Now No 10/20/24 10:01 Gestational Age (in weeks): EDC: Hx Hx Para Hx Section SAB No 10/20/24 10:01 [facility] Medical History (Updated 10/20/24 @ 10:06 by Paris Pacheco) Depression Marijuana use Emphysema, unspecified COPD (chronic obstructive pulmonary disease) Tendinopathy of right biceps tendon Primary osteoarthritis, right shoulder Right rotator cuff tear Impingement of right shoulder Right shoulder pain Wears glasses Anxiety Alcohol use Arthritis Smoker Shortness of breath on exertion Hypertension Tendinopathy of left biceps tendon Left rotator cuff tear Impingement of left shoulder Left shoulder pain Pneumothorax Home Medications ?Medication ?Instructions ?Recorded ?Last Taken ?Type acetaminophen 325 mg capsule 325 mg PO Q4H PRN pain Unknown History (Tylenol) ibuprofen 200 mg capsule 200 mg PO Q6H PRN pain 09/20 Unknown History lisinopril 10 mg tablet 10 mg PO DAILY 09/20/23 02/0 10/10 History sertraline 50 mg tablet (Zoloft) 50 mg PO QDAY 4 Unknown History albuterol sulfate 90 mcg/actuation 2 puff inhalation Q 4H PRN PRN 10/20/24 Unknown History aerosol inhaler shortness of breath or wheez ing Allergy/AdvReac Type Severity Reaction Status Date / Time No Known Allergies Allergy Verified 10/20/24 09:58 Surgical History (Updated 10/20/24 @ 10:06 by Paris Pacheco) Hx of shoulder surgery History of esophagogastroduodenoscopy (EGD) History of colonoscopy History of appendectomy Social History Smoking Status: Current every day smoker tobacco type: cigarettes Audit: Pertinent Findings Pertinent Findings EKG Perinent findings: 10/21/2024 sinus rhythm short TN interval 82 bpm Recommendation Anesthesia Recommendation Anesthesia recommendation: OPTIMIZED for anesthesia
[2024-10-29] VITALS (11 sets, daily range): BP systolic 137–158; BP diastolic 74–109; PULSE 60–70; RESP 16–18; TEMP 36.1–36.9; O2SAT 34–96; BMI 28.5
--- NOTE | 2024-10-29 07:49 | PCM.HP.STD ---
HPI - General HPI Narrative ALFREDA HAN, is a 59 M who presents for right shoulder arthroscopy, subacromial decompression, rotator cuff repair, biceps tenodesis. No changes to history and physical exam. Right shoulder marked. Risks alternatives benefits discussed as well as postoperative instructions and narcotic counseling. The patient understands wished to proceed no further questions or concerns. MR#: [id number] Acct: [id number] Name: ALFREDA HAN Rep #: [id number] : 1965 Provider: Dr. Livan Dietz MD Age/Sex: 59/M Location: [facility] [place] Status: Signed Intake Vital Signs 06/09/2412:55 08/25/2413:15 Height 5 ft 8 in 5 ft 8 in Weight: 190 lb 2 oz BMI 28.9 Intake Visit Reasons: right shoulder Chief Complaint: Right Shoulder - wants to discuss surgery Accompanied by: Is patient in pain?: Yes Pain scale (1-10): 6 Allergies No Known Allergies Allergy (Verified 08/25/24 13:16) Medications ?Medication ?Instructions ?Recorded ?Confirmed ?Type acetaminophen 325 mg capsule 325 mg PO ONCE PRN pain 09/20/23 08/25/24 History (Tylenol) ibuprofen 200 mg capsule 200 mg PO Q6H PRN pain 09/20/23 08/25/24 History lisinopril 10 mg tablet 10 mg PO DAILY 09/20/23 08/25/24 History sertraline 50 mg tablet (Zoloft) 50 mg PO QDAY 06/09/24 08/25/24 History PFSH Medical History (Updated 08/25/24 @ 13:28 by Livan Dietz MD) Tendinopathy of right biceps tendon Primary osteoarthritis, right shoulder Right rotator cuff tear Impingement of right shoulder Right shoulder pain Wears glasses Anxiety Alcohol use Arthritis Smoker Shortness of breath on exertion Leg cramps Hypertension Tendinopathy of left biceps tendon Left rotator cuff tear Impingement of left shoulder Left shoulder pain Pneumothorax Surgical History History of esophagogastroduodenoscopy (EGD) History of colonoscopy History of appendectomy Social History Smoking Status: Current every day smoker tobacco type: cigarettes HPI right shoulder Details: This documentation accurately reflects the service provided and the decisions made by me, Dr. Livan Dietz MD 08/25/24 1313. Part of today?s visit was documented by [ ], acting as scribe. ALFREDA HAN is a 59 year old M here today for follow-up right shoulder pain. The patient is interested in an operation. Still having laterally based shoulder pain worse with lifting. Ortho Exam Right Shoulder Skin/Wound: Yes CDI, No ecchymosis, No erythema and No swelling Testing: Positive Hawkin's, Neer's, Speed's, AROM-Forward Elevation 0-180, AROM-External Rotation at side 0-60, empty can and belly press normal; Negative TTP Biceps, TTP AC Joint, Drop Arm, cross arm or scapular winging SHOULDER: normal motor and sens to ax nerve, and MRU and AIN/PIN strength fe 4+, er 5/5. Supplemental Info [facility] Imaging Services [address] [place] [address] Upper Ext Joint Only(Routine) MR#: [id number] Acct: [id number] Name: ALFREDA HAN Rep #: [id number] : 1965 M 58 From: Keaton Hernandez MD PCP: Dr. Sheridan Lai, DO Status: REG CLI Study: Upper Ext Joint Only(Routine) Date of Exam: 09/07/23 Exam# [id number] Ordering Dr: Darell Sultana PA-C STUDY: MRI LEFT SHOULDER REASON FOR EXAM: Male, 58 years old. Sprain. Left shoulder pain, status post lifting injury x 3 months, limited range of motion, pain in shoulder and scapula, throbbing, sharp, popping, no surgery on shoulder. TECHNIQUE: Standardized fat and water weighted pulse sequences were obtained in all 3 orthogonal planes. COMPARISON: None. FINDINGS: There is a full-thickness tear of the distal supraspinatus tendon, overall measuring 1.8 cm in length (coronal T2 series 6 images 11-15) and 2.0 cm in width (sagittal T2 series 7 images 12-16). There is mild infraspinatus and subscapularis tendinosis. Normal teres minor tendon. Normal supraspinatus muscle. Normal infraspinatus muscle. Normal subscapularis muscle. Normal teres minor muscle. There is tendinosis and partial tearing of the long biceps tendon. There is a small glenohumeral joint effusion with fluid communicating into the subacromial-subdeltoid bursa. Intact humeral head and visualized proximal humerus. Normal labrum. Normal capsulo-ligamentous complex. There is mild hypertrophic acromioclavicular arthrosis, with inferior osteophyte formation, with minimal effacement of the supraspinatus myotendinous junction. There is a Type II morphology (curved), with a neutral orientation. There is no subacromial-subdeltoid bursal fluid. Normal visualized coracohumeral and coracoacromial ligaments. Normal quadrilateral space. Normal axillary space. Normal deltoid muscle. Normal trapezius muscle. MRI/Upper Ext Joint Only(Routine) IMPRESSION: 1.8 x 2.0 cm full-thickness tear of the distal supraspinatus tendon. Mild infraspinatus and subscapularis tendinosis. Mild hypertrophic acromioclavicular arthrosis, with inferior osteophyte formation, with minimal effacement of the supraspinatus myotendinous junction. Small glenohumeral joint effusion with fluid communicating into the subacromial-subdeltoid bursa. Tendinosis and partial tearing of the long biceps tendon. Electronically Signed: Keaton Hernandez MD at 12:50 EST , I independently reviewed the imaging. Concur with radiologist report. I do see signs of fraying of the biceps no obvious evidence of biceps tenodesis on the MRI or the x-ray Coding Level of Care Code Off vis,est,level 4 Diagnoses Right rotator cuff tear M75.101 Impingement of right shoulder M25.811 Right shoulder pain M25.511 Tendinopathy of right biceps tendon M67.921 Assessment and Plan Assessment and Plan (1) Right rotator cuff tear: Status: Acute Plan: 59-year-old man with medium sized a rotator cuff tear on the right side tendinopathy long head of the biceps. The patient has had good success in the past with a left shoulder arthroscopy rotator cuff repair and biceps tenodesis. I think that would certainly be a reasonable option on this side given the failure of conservative management as well. We explained the pros and cons risk benefits as well as postoperative recovery right shoulder arthroscopy, subacromial decompression, rotator cuff repair, biceps tenodesis. The patient understands wished to proceed signed the consent form for surgery the patient is a smoker he should quit or cut back he smokes 5 cigarettes a day that can certainly impact tendon healing there is good evidence of that as well as increased risk of infection and other complications. The patient understands no further questions or concerns. Pros and cons risks and benefits were discussed with the patient including but not limited to infection, pain, stiffness, bleeding, damage to surrounding structures, neurovascular injury, recurrence or retear, failure or wear of hardware or fixation, instability, fracture, deep vein thrombosis and pulmonary embolism, anesthetic risks, , patient dissatisfaction, need for further surgery and other risks. Patient understood and wished to proceed with surgery, and signed the informed consent documentation. [facility] Medical History (Updated 10/20/24 @ 10:06 by Paris Pacheco) Depression Marijuana use Emphysema, unspecified COPD (chronic obstructive pulmonary disease) Tendinopathy of right biceps tendon Primary osteoarthritis, right shoulder Right rotator cuff tear Impingement of right shoulder Right shoulder pain Wears glasses Anxiety Alcohol use Arthritis Smoker Shortness of breath on exertion Hypertension Tendinopathy of left biceps tendon Left rotator cuff tear Impingement of left shoulder Left shoulder pain Pneumothorax Home Medications ?Medication ?Instructions ?Recorded ?Last Taken ?Type acetaminophen 325 mg capsule 325 mg PO Q4H PRN pain 09/20/23 Unknown History (Tylenol) ibuprofen 200 mg capsule 200 mg PO Q6H PRN pain 09/20/23 Unknown History lisinopril 10 mg tablet 10 mg PO DAILY 09/20/23 10/29/24 06:00 History sertraline 50 mg tablet (Zoloft) 50 mg PO QDAY 09/23/24 Unknown History albuterol sulfate 90 mcg/actuation 2 puff inhalation Q4H PRN PRN 10/20/24 Unknown History aerosol inhaler shortness of breath or wheezing Allergy/AdvReac Type Severity Reaction Status Date / Time No Known Allergies Allergy Verified 10/29/24 07:08 Surgical History (Updated 10/20/24 @ 10:06 by Paris Pacheco) Hx of shoulder surgery History of esophagogastroduodenoscopy (EGD) History of colonoscopy History of appendectomy Social History Smoking Status: Current every day smoker tobacco type: cigarettes Vital Signs Vital Signs Vital Signs: 10/29/24 07:00 10/29/24 07:00 Temperature 98.4 F Temperature Source Temporal Pulse Rate 70 Respiratory Rate 18 Respiratory Pattern Normal Blood Pressure 149/81 H Blood Pressure Mean 103 Blood Pressure Source Monitor Blood Pressure Position Sitting Blood Pressure Location Right Arm Pulse Ox 96 Oxygen Delivery Method Room Air Weight Weight: 187 lb 6.287 oz Body Mass Index (BMI) 28.5 Results Lab / Micro Data 10/21/24 13:44
--- NOTE | 2024-10-29 08:48 | PCM.PRE.AN2 ---
ASA Classification* ASA Classification ASA Classification: 3 Assessment & Plan Anesthesia* Anesthesia Assessment Anesthesia Assessment: Discussed sedation and/or anesthesia options, risks, benefits, and alternatives with patient/parents/legal guardian/POA. Questions invited. The patient/parents/legal guardian/POA seems to understand and agrees to proceed with anesthesia plan. Reviewed the physical assessment, medical history, allergy history and patient home medications list prior to surgery/procedure/anesthetic and documented any changes. Performed airway and anesthesia risk assessments. Anesthesia Type Anesthesia Type: General (NO Block, patient had pnuemothorax in past and prefers no block) Anesthesia Focused Assessment* Temperature: 98.4 F Pulse Rate: 70 Blood Pressure: 149/81 Respiratory Rate: 18 Pulse Ox: 96 Airway Assessment Mouth opens: >3 cm Mallampati Score: II Focused Labs Anesthesia Preop lab: CBC WBC 10.5 K/mm3 (4.4-11.0) 10/21/24 13:44 10/21/24 RBC 4.58 M/mm3 (4.6-6.2) L 10/21/24 13:44 10/21/24 Hgb 14.1 g/dL (13.0-16.5) 10/21/24 13:44 10/21/24 Hct 41.2 % (40-54) 10/21/24 13:44 10/21/24 Plt Count 257 K/mm3 (150-450) 10/21/24 13:44 10/21/24 CHEMISTRY COAG Pre-Assessment Diagnosis/Proposed Procedure Planned Operative Procedure(s): RIGHT SHOULDER ARTHROSCOPY SUBCROMIAL DECOMPRESSION RTC REPAIR Anesthesia History 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 When Was Last Pacemaker Check QUESTION #4 FULL TEXT: You/Your Family Experience fever (hyperthermia) with Anesthesia Last Oral Intake Last Oral intake: Last Oral Intake NPO since 06:00 10/29/24 07:00 Meds taken in AM with sips of Yes 10/29/24 07:00 water? 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 Female No 10/20/24 10:01 HX of Motion Sickness No 10/20/24 10:01 HX of N/V After Surgery No 10/20/24 10:01 Non-Smoker No 10/20/24 10:01 Duration of Surgery greater Yes 10/20/24 10:01 than 60 minutes Number of Risk Factors 1 10/20/24 10:01 PONV Score Low Risk 10/20/24 10:01 Height & Weight Height & Weight: Anesthesia: Height & Weight Height 5 ft 8 in 10/29/24 07:00 Weight: 85 kg 10/29/24 07:00 Body Mass Index (BMI) 28.5 10/29/24 07:00 Respiratory Assessment Respiratory Assessment - economic research analyst: Respiratory Tract Infection Hx - economic research analyst Hx Respiratory Tract Infection No 10/20/24 10:01 STOP Sleep Apnea STOP Sleep Apnea - economic research analyst: STOP Sleep Apnea - economic research analyst Hx Hypertension Yes: CONTROLLED WITH MED 10/20/24 10:01 Hx Sleep Apnea No 10/20/24 10:01 CPAP BIPAP Do you snore loudly (louder No 10/20/24 10:01 than talking or can be heard Do you often feel tired/ No 10/20/24 10:01 fatigued/ sleepy during daytime? Has anyone observed you stop No 10/20/24 10:01 breathing during sleep? STOP Results Negative 10/20/24 10:01 QUESTION #5 FULL TEXT : Do you snore loudly (louder than talking or can be heard through closed doors)? 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 Specify any problems Hx of Preganancy in last 3 N/A 10/20/24 10:01 Months Nurse Filling Out Transfusion DSCHRIBER 10/20/24 10:01 & Questions: Date: 10/20/24 10/20/24 10:01 Time: 10:10/20/24 10:01 Patient unable to answer at this time (ie. confused, unrespo /Reproduction History /Reproductive History - economic research analyst: /Reproductive Hx- economic research analyst Hx Now No 10/20/24 10:01 Gestational Age (in weeks): EDC: Hx Hx Para Hx Section SAB No 10/20/24 10:01 Active Medications Active Medications: Current Medications Generic Name Dose Route Start Last Admin Trade Name Freq PRN Reason Stop Dose Admin Cefazolin Sodium 2 gm/ N/A 20 mls @ 400 mls/hr 10/29/24 09:40 IV 10/29/24 09:42 PREOP ONE Sodium Chloride 1,000 mls @ 15 mls/hr 10/29/24 07:15 IV 11/03/24 20:34 .Q48H [facility] Protocol PFSH Medical History Depression Marijuana use Emphysema, unspecified COPD (chronic obstructive pulmonary disease) Tendinopathy of right biceps tendon Primary osteoarthritis, right shoulder Right rotator cuff tear Impingement of right shoulder Right shoulder pain Wears glasses Anxiety Alcohol use Arthritis Smoker Shortness of breath on exertion Hypertension Tendinopathy of left biceps tendon Left rotator cuff tear Impingement of left shoulder Left shoulder pain Pneumothorax Home Medications ?Medication ?Instructions ?Recorded ?Last Taken ?Type acetaminophen 325 mg capsule 325 mg PO Q4H PRN pain 09/20/23 Unknown History (Tylenol) ibuprofen 200 mg capsule 200 mg PO Q6H PRN pain 09/20/23 Unknown History lisinopril 10 mg tablet 10 mg PO DAILY 09/20/23 10/29/24 06:00 History sertraline 50 mg tablet (Zoloft) 50 mg PO QDAY 06/09/24 Unknown History albuterol sulfate 90 mcg/actuation 2 puff inhalation Q4H PRN PRN 10/20/24 Unknown History aerosol inhaler shortness of breath or wheezing Allergy/AdvReac Type Severity Reaction Status Date / Time No Known Allergies Allergy Verified 10/29/24 07:08 Surgical History Hx of shoulder surgery History of esophagogastroduodenoscopy (EGD) History of colonoscopy History of appendectomy Social History Smoking Status: Current every day smoker tobacco type: cigarettes Review of Systems (Anesthesia) ROS Narrative System reviewed and no additional complaints, except as documented.
[2024-10-29] MEDS: Cefazolin 2 GM in Syringe IV (10:50)
[2024-10-29] MEDS: Epinephrine (1 mg/ml) 1 MG/ML VIAL ×2 (11:15)
[2024-10-29] MEDS: Bupivacaine 0.25% 30 ML Vial (11:15)
--- NOTE | 2024-10-29 12:53 | PCM.OPRPT ---
Problems Associated Problem List Diagnoses (1) Tendinopathy of right biceps tendon: (2) Right rotator cuff tear: (3) Impingement of right shoulder: Procedures Musculoskeletal [id number]: Other Procedure See Report Operative Report (Standard) Operative Information Date of Procedure: 10/29/24 Pre-Operative Diagnosis: Right shoulder impingement syndrome rotator cuff tear and long head of biceps tear Post-Operative Diagnosis: Same Surgery/Procedure Performed: Right shoulder arthroscopy, rotator cuff repair, subacromial decompression, subpectoral biceps tenodesis. 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 teacher: Yes Posting Specialist: diana Tasks completed by gallery assistant: Retracting Additional senior sales assistant?: No Type of Anesthesia: General and Local RN Documented Start/Stop Times: Operation Date: 10/29/24 09:10 Case Time Into Pre-Op 10/29/24 06:47 Out of Pre-Op 10/29/24 10:28 Anesthesia Start 10/29/24 10:32 Into Room 10/29/24 10:32 Procedure Start 10/29/24 11:02 Procedure End 10/29/24 12:49 Procedure Start Time: 11:02 Procedure Stop Time: 12:49 Select all DRAINS/GRAFTS/IMPLANTS that apply: Implanted device Implanted device details: Arthrex rotator cuff anchors Estimated Blood Loss: 50 Specimen collected: No Description of surgery: Patient was brought to the operating room theater. They were administered 2 g of IV Ancef prior to the start of the procedure. Placed supine on the operating room table. General anesthesia induced. Patient placed right side up lateral decubitus with the aid of the beanbag positioner. Axillary roll was used all bony prominences padded. SCDs on the legs. Operative extremity prepped and draped in the usual sterile fashion with chlorhexidine-based prep solution allowing over 3 minutes drying time prior to draping. 10 pounds of inline traction with the arm in 30 degrees of abduction was used. Preoperative timeout performed to confirm the site patient and the surgery. I began by inserting the arthroscope into the intra-articular portion of the shoulder through a standard arthroscopic posterior portal. Cartilage on the glenoid and humeral head was grade 1 changes with fraying of the labrum. Axillary recess was normal. Biceps was gone and not seen intra-articular. I made an inside-out anterior portal through the rotator interval using spinal needle localization. There was a, sign with tearing of the upper subscapularis as well as a full-thickness tear of the supraspinatus measuring 2.5 cm from anterior to posterior as well as 2.5 cm from medial to lateral. I placed a cannula. I used the power pick instrument for multiple trephination's send to stimulate bleeding healing at the base of the subscapularis upper third and cleared away any superimposed tissue at the greater tuberosity as well as using the power pick there. Used 2 fiber link sutures for a luggage tag configuration suture at the upper border subscapularis into the comma tissue. And then inserted those into a 4.75 mm Arthrex swivel lock anchor. This achieved good solid fixation of the subscapularis tear and reestablishment of the normal appearance of the rotator interval. Next I placed the arthroscope into the subacromial space. Bursectomy performed minor amount of bursitis. I performed a subacromial decompression for about 4 mm down to flat margins. Tear was mostly mobile from posterior to anterior. I placed 2 Arthrex fiber tack RC anchors at the posterior margin of the tear 1 just off the articular cartilage and 1 at the lateral greater tuberosity. I passed all sutures through the rotator cuff posteriorly. I then used the fiber tape sutures to then converge those just tapes to anterior 4.75 mm swivel lock anchor just off the anterior aspect of the greater tuberosity for a triangular-shaped repair. I then converted the medial row for the knotless medial row for good compression at the footprint. This did repair the tear nicely down to the footprint. Arthroscopy pictures taken and saved throughout the case. Next turned my attention to perform the biceps tenodesis. I made a small longitudinal incision centered over the upper proximal medial aspect of the humerus over the long head of the biceps tendon. Carried the dissection down through skin and subcutaneous tissue achieved meticulous hemostasis. I identified the biceps proximally and released scar tissue at the biceps groove at the upper aspect of the humerus. I delivered the biceps tendon long head through the incision distal to the pectoralis major insertion. I shorten this. I used the biceps Arthrex tension tight included suture loop lifted around using a locking loop configuration on the past the suture just distal to this from anterior to posterior just proximal to the musculotendinous junction. I then drilled a unicortical drill hole. I irrigated any bone dust. I passed the button flipped the button and delivered the tendon down and an onlay technique. This is stable and solid appropriately tensioned. Suture cut short wound thoroughly irrigated. Subcutaneous tissue closed with 2-0 Vicryl suture and skin with 3-0 Monocryl. Steri-Strips were applied after the skin was cleaned and dried. Adaptic gauze abdominal pad dressings and tape was then applied with a sling to the upper extremity. Patient woken up from general anesthetic transferred off the operating room table and taken to postanesthetic care unit in stable condition. All sponge needle instrument counts were correct no complications. Plan for the patient to be discharged home according to day surgery criteria when they are comfortable. Appropriate narcotic counseling given and follow-up in the office in 2 days time. Range of motion will be pendulum exercises as well as hand wrist and elbow exercises 4 times a day. cpt 18702, 60291, [id number] Surgical Findings: Supraspinatus rotator cuff tear tear of the long head of the biceps and impingement syndrome. Also subscapularis tear. Complications Complications: No Admit VTE Documentation VTE Present on Admission: No VTE Mechan Device Prophylaxis: SCD's VTE Pharm Prophylaxis ordered?: No Reason prophylaxis not ordered: Treatment Not Indicated
[2024-10-29] MEDS: Sugammadex Sodium 200 MG/2 ML VIAL IV (12:57)
--- NOTE | 2024-10-29 13:00 | DCINST_ITS ---
Discharge Instructions Diet Discharge Diet: No restrictions Activity Ice area for (Minutes): 10 Lifting Restrictions: no lifting over 1 pound Additional Activity Instructions:: ok for pendulums 4x/day, ok for gentle elbow hand ROM Dressing / Incision Call your doctor if your incision/area has: Continuous Slow Oozing, Sudden Increased Bleeding, Increased Pain/ Swelling, Increased Redness, Foul Smelling Discharge and Swelling at the incision site Call your doctor if you observe: Fever of 101 or Higher, Coldness, Increased Pain and Numbness or Tingling Change Dressing in: leave in place till F/U Remove Dressing in: leave in place till F/U Cleanse incision/area with: Do not get Incision Wet Follow Up Care Please Follow Up With: Livan Dietz MD When: 2 days or within 2 weeks Test Results: Test results from this visit will be discussed in further detail at your follow- up appointment, if applicable. Discharge Plan Admission Attending Provider: Livan Dietz Primary Care Provider: Sheridan Lai Instructions Print Language: Croatian Discharge Orders/Prescriptions Prescriptions: New oxycodone-acetaminophen [Endocet] 5-325 mg tablet 1 tab PO Q4H MDD 6 PRN (Reason: pain) 5 Days Qty: 20 0RF No Action lisinopril 10 mg tablet 10 mg PO DAILY Patient Comments: TAKE 1 TABLET BY MOUTH EVERY DAY acetaminophen [Tylenol] 325 mg capsule 325 mg PO Q4H PRN (Reason: pain) ibuprofen 200 mg capsule 200 mg PO Q6H PRN (Reason: pain) sertraline [Zoloft] 50 mg tablet 50 mg PO QDAY albuterol sulfate 90 mcg/actuation HFA aerosol inhaler 2 puff INHALATION Q4H PRN PRN (Reason: shortness of breath or wheezing) Referrals / Follow Up: Sheridan Lai DO [Primary Care Provider] - Livan Dietz MD [Med Staff - Active Staff] - Disposition Disposition (needs filled in before D/C Order can be placed): Home, Self Care
--- NOTE | 2024-10-29 13:09 | PCM.POST.ANE ---
Anesthesia: Postop Eval I Current Vital Signs Temperature: 97.6 F Pulse Rate: 68 Blood Pressure: 144/96 Respiratory Rate: 18 Pulse Ox: 34 Oxygen Delivery Method: Nasal Cannula Oxygen Flow Rate (L/min): 4 Assessment Airway patent: Yes Spontaneous unlabored respirations: Yes Mental status: Awake nausea: No Vomiting: No Anesthesia Complication: No Fluid Hydration Crystalloid volume administer (ml): 800 Total IV fluid infused: 800 Progress Note Anesthesia document: Postop Eval 1 completed: Yes
--- NOTE | 2024-10-29 13:29 | POSTOPAN2_ITS ---
Anesthesia Postop Eval I Sum Postop Eval Completion status Anesthesia document: Postop Eval 1 completed: Yes Anesthesia Postop Eval I Summary Anesthesia Postop Eval I Summary: Anesthesia Postop Eval I: Assessment Summary Airway patent Yes 10/29/24 13:11 [email or web address] Spontaneous unlabored Yes 10/29/24 13:11 [email or web address] respirations Mental status Awake 10/29/24 13:11 [email or web address] nausea No 10/29/24 13:11 [email or web address] Vomiting No 10/29/24 13:11 [email or web address] Anesthesia Postop Eval I: Fluid Summary Crystalloid volume administer 800 10/29/24 13:11 [email or web address] (ml) Colloids volume administered ( ml) Blood Product volume administered (ml) Total IV fluid infused 800 10/29/24 13:11 [email or web address] Anesthesia Postop Eval I: Summary Notes Anesthesia Complication No 10/29/24 13:11 [email or web address] Anesthesia Complication Comment: Post-operative progress note Anesthesia: Postop Eval II Evaluation Mental status: Awake Pain Level: 0 nausea: No Vomiting: No
--- NOTE | 2024-10-29 13:29 | PCM.POSTANE2 ---
Anesthesia Postop Eval I Sum Postop Eval Completion status Anesthesia document: Postop Eval 1 completed: Yes Anesthesia Postop Eval I Summary Anesthesia Postop Eval I Summary: Anesthesia Postop Eval I: Assessment Summary Airway patent Yes 10/29/24 13:11 [email or web address] Spontaneous unlabored Yes 10/29/24 13:11 [email or web address] respirations Mental status Awake 10/29/24 13:11 [email or web address] nausea No 10/29/24 13:11 [email or web address] Vomiting No 10/29/24 13:11 [email or web address] Anesthesia Postop Eval I: Fluid Summary Crystalloid volume administer 800 10/29/24 13:11 [email or web address] (ml) Colloids volume administered ( ml) Blood Product volume administered (ml) Total IV fluid infused 800 10/29/24 13:11 [email or web address] Anesthesia Postop Eval I: Summary Notes Anesthesia Complication No 10/29/24 13:11 [email or web address] Anesthesia Complication Comment: Post-operative progress note Anesthesia: Postop Eval II Evaluation Mental status: Awake Pain Level: 0 nausea: No Vomiting: No
[2024-10-29] MEDS: HYDROcodone Bitartrate/Apap 5/325 Tablet PO (14:29)
== END 2024-10-29 14:48 | disposition home or self-care (01) ==
LOC: SDC 06:44 → AC 06:46
PROVIDERS: Anesthesiology; PCP Internal Medicine; Referring Provider Orthopaedic Surgery Sports Medicine; Visit Provider Orthopaedic Surgery Sports Medicine
PROC: (CPT 29805; principal; 2024-10-29 08:55)
DX: M75.101 Unspecified rotator cuff tear or rupture of right shoulder, not specified as traumatic (principal); J44.9 Chronic obstructive pulmonary disease, unspecified; M25.811 Other specified joint disorders, right shoulder; S46.111A Strain of muscle, fascia and tendon of long head of biceps, right arm, initial encounter; I10 Essential (primary) hypertension; F17.210 Nicotine dependence, cigarettes, uncomplicated; F41.9 Anxiety disorder, unspecified; F32.A Depression, unspecified; Z79.51 Long term (current) use of inhaled steroids; Z79.899 Other long term (current) drug therapy; X58.XXXA Exposure to other specified factors, initial encounter
CPT/HCPCS: 29827; 23430; 29826; 01630; 36415; 85027; 93005; C1713; J2405

== ENCOUNTER 2024-12-03 09:00 | Outpatient (RCR) | payer MEDICAID, SELFPAY ==
--- NOTE | 2024-11-17 17:22 | HP.PTEVAL_ITS ---
Patient's Visit Information Visit Information Visit Information: ALFREDA HAN is a 59 year old M referred to Physical Therapy by Dr. Livan Dietz MD with a diagnosis of R shoulder rotator cuff repair and biceps tenodesis 10/29/24. Date of Evaluation: 11/17/24 Physical Therapist: Arthur Robert, PT, ATC Visit Plan Frequency: 2x /Week Duration: 6-8 weeks Plan: AROM, PROM, and mobs to R shoulder. Begin strengthening at the 6 week michel consisting of isometrics, progress to rotator cuff strengthening, scap stab ex's, and HEP Subjective Subjective: DOS: 10/29/24. Pt reports he had a rotator cuff repair and R biceps tenodesis performed at that time. Pt reports his shoulder is starting to feel a little better. Pt reports he weaned out of his sling a week ago. Pt is R hand dominant. Pt is working at [employer] currently. Pt denies tingling or numbness at this time. Pt reports he has sleep difficulty at this time secondary to pain. Pt reports he is still limited with all IADL's at this time. Pt reports he is able to perform most of them, but just performs them more slowly. Pt reports he had a L rotator cuff repaired approximately one year ago that he is still limited with lifting most things over 10 pounds. 6/10 pain in R shoulder while sitting here at rest, 8/10 pain at worst. Pain R shoulder: Pain Intensity (Out of 10): 6 Pain Intensity Range: 8 Objective Objective: Neuro: B UE sensation is WNL to light touch throughout. Observation: Incisions are still healing at this time. No obvious signs of infection at this time. AROM: L shoulder flex= 130, abd= 125, ER= 10, IR= to belt line; R shoulder flex= 60, abd= 35, ER= 20 MMT: L shoulder flex= 5, abd= 8, ER= 5, IR= 10 #F; R shoulder not tested today Balance/Special Test Scores Quick DASH Score: 54.5450 Goals Goal 1:: Decrease R shoulder pain x 50% to aid with sleep Goal Time Frame: 6-8 Weeks Goal 2:: Increase R shoulder flex and abd ROM to 100 degrees to aid with IADL's Goal Time Frame: 6-8 Weeks Goal 3:: Increase R shoulder strength to equal 90% of L shoulder strength to aid with IADL's Goal Time Frame: 6-8 Weeks Goal 4:: I with HEP Goal Time Frame: 6-8 Weeks Rehabilitation Potential Physical Therapy Diagnosis: Pt has R shoulder pain, weakness, and limited ROM secondary to R shoulder rotator cuff repair with biceps tenodesis Rehabilitation Potential: Good Anticipated Interventions Patient/Client Instruction: Educate patient on: Condition and Plan of Care For the Purpose of:: To improve self management Therapeutic Exercise to Include: Strength training, Endurance training, Flexibilty training, Passive ROM, Active ROM and Scapular Strength/Stabilization For the Purpose of:: To decrease pain, To increase ROM and To improve muscle performance and motor function Cryotherapy (ice pack, ice massage): Yes For the Purpose of:: To decrease pain Text: Thank you for the opportunity to evaluate your patient. For Medicare and Medicare HMO plans, please review the plan of care and approve it. It will need to be FAXED BACK to us at [phone] for Medicare purposes. For Medicare only, by signing this I certify the plan of care. Please let me know if there are questions or concerns regarding this plan of care. Physician Signat ure: Date:
--- NOTE | 2025-02-10 16:22 | HP.PT.NRP ---
Patient Information Patient Information: ALFREDA HAN was seen in my office for initial evaluation on 11/17/24. The following Plan of Care was established for this patient: POC Established Initial Frequency: 2x /Week Initial Duration: 6-8 weeks Anticipated Interventions Patient/Client Instruction: Educate patient on: Condition and Plan of Care For the Purpose of:: To improve self management Therapeutic Exercise to Include: Strength training, Endurance training, Flexibilty training, Passive ROM, Active ROM and Scapular Strength/Stabilization For the Purpose of:: To decrease pain, To increase ROM and To improve muscle performance and motor function Cryotherapy (ice pack, ice massage): Yes For the Purpose of:: To decrease pain Last Seen Last Seen: This patient was last seen in our office . Pertinent comments regarding their Physical therapy will appear below: Pt has not returned to [facility] is greater than 30 days and is discharged at this time. At this point I will be discontinuing this patient from physical therapy. I would be happy to see this patient again in the future if found appropriate by the physician. Thank you! Arthur Robert, PT, ATC Balance/Gait/Functional tests Balance/Special Test Scores Quick DASH Score: [phone]
== END 2024-12-03 19:00 | disposition home or self-care (01) ==
LOC: PT 09:00
PROVIDERS: PCP Internal Medicine; Referring Provider Orthopaedic Surgery Sports Medicine; Visit Provider Orthopaedic Surgery Sports Medicine
DX: M75.101 Unspecified rotator cuff tear or rupture of right shoulder, not specified as traumatic (principal)
CPT/HCPCS: 97110; 97140; 97161

== ENCOUNTER 2024-12-29 14:01 | Emergency (ER) | payer MEDICAID, SELFPAY ==
[2024-12-29 14:01] VITALS: BP 182/93; PULSE 67; RESP 15; TEMP 36.4; O2SAT 92; BMI 29.1
--- NOTE | 2024-12-29 14:12 | EX.ED.DYSGE1 ---
HPI <ROBERT Ng - Last Filed: 12/29/24 15:00> History of Present Illness Chief Complaint: Lower Extremity Injury Narrative Narrative: 59-year-old male states 1 week ago he developed left knee pain and swelling. The pain is mainly on the inner aspect of the knee. He states he was working on his car and may have been a little more active than usual. He had no fall or injury. He has no history of knee problems or surgery. No calf pain or swelling. He is established with an orthopedist due to bilateral shoulder replacements. PFS <ROBERT Ng - Last Filed: 12/29/24 15:00> [facility] Medical History Depression Marijuana use Emphysema, unspecified COPD (chronic obstructive pulmonary disease) Tendinopathy of right biceps tendon Primary osteoarthritis, right shoulder Right rotator cuff tear Impingement of right shoulder Right shoulder pain Wears glasses Anxiety Alcohol use Arthritis Smoker Shortness of breath on exertion Hypertension Tendinopathy of left biceps tendon Left rotator cuff tear Impingement of left shoulder Left shoulder pain Pneumothorax Home Medications ?Medication ?Instructions ?Recorded ?Last Taken ?Type acetaminophen 325 mg capsule 325 mg PO Q4H PRN pain 09/20/23 Unknown History (Tylenol) ibuprofen 200 mg capsule 200 mg PO Q6H PRN pain 09/20/23 Unknown History lisinopril 10 mg tablet 10 mg PO DAILY 09/20/23 10/29/24 06:00 History sertraline 50 mg tablet (Zoloft) 50 mg PO QDAY 06/09/24 Unknown History albuterol sulfate 90 mcg/actuation 2 puff inhalation Q4H PRN PRN 10/20/24 Unknown History aerosol inhaler shortness of breath or wheezing oxycodone-acetaminophen 5 mg-325 1 tab PO Q4H PRN pain 5 days #20 11/03/24 Unknown Rx mg tablet (Endocet) tabs meloxicam 7.5 mg tablet 7.5 mg PO BID PRN post op pain 2 11/10/24 Unknown Rx weeks #14 tabs Allergy/AdvReac Type Severity Reaction Status Date / Time No Known Allergies Allergy Verified 12/29/24 14:04 Surgical History Hx of shoulder surgery History of esophagogastroduodenoscopy (EGD) History of colonoscopy History of appendectomy Social History Smoking Status: Current every day smoker tobacco type: cigarettes ROS <ROBERT Ng - Last Filed: 12/29/24 15:00> ROS ED ROS Narrative Constitutional: Negative for fever, chills, malaise. Neuro: Negative for motor/sensory dysfunction. Skin: Negative for rash. Musc: Positive for left knee pain, swelling. EXAM <ROBERT Ng - Last Filed: 12/29/24 15:00> Physical Exam Narrative Exam Narrative: CONST: Patient sitting in no acute distress. EYES: Normal inspection. ENT: Normal inspection, moist mucous membranes. NECK: Normal inspection. RESP: No respiratory distress, CTAB. CVS: Regular rate and rhythm, no murmur, no gallop. SKIN: Color normal, no rash, warm, dry, intact. EXTREMITIES: Left knee has mild swelling and is tender over the infrapatellar medial aspect. Full range of motion of the knee. Negative anterior/posterior drawer, negative varus stress, pain with valgus stress but no laxity. Negative modified Sidney's. 5/5 strength in knee flexion/extension and DF/PF. Normal sensation. 2+ DP pulse. No calf swelling or tenderness. NEURO: Alert and answering questions appropriately. PSYCH: Normal affect. Const Vital Signs: 12/29/24 14:01 Temperature 97.6 F L Temperature Source Oral Pulse Rate 67 Respiratory Rate 15 Blood Pressure 182/93 H Blood Pressure Mean 122 Pulse Ox 92 Oxygen Delivery Method Room Air <Dr. Jeremiah Red, DO - Last Filed: 12/29/24 14:41> Physical Exam Const Vital Signs: 12/29/24 14:01 Temperature 97.6 F L Temperature Source Oral Pulse Rate 67 Respiratory Rate 15 Blood Pressure 182/93 H Blood Pressure Mean 122 Pulse Ox 92 Oxygen Delivery Method Room Air MDM <ROBERT Ng - Last Filed: 12/29/24 15:00> MDM MDM Narrative Medical decision making narrative: 59-year-old male presents with 1 week of atraumatic left knee pain and swelling. He has mild soft tissue swelling and tenderness over the medial infrapatellar region. Normal extension. Neurovascular intact. No evidence of meniscal or ligamentous laxity on exam. X-ray shows no acute findings. I recommended RICE protocol and [id number] pain medication and follow-up with his orthopedist. He was discharged in stable condition. Differential includes but not limited to bursitis, ligamentous or meniscal injury, osteoarthritis, fracture Radiography Diagnostic Testing: Clinical Impression(s) from Imaging Studies Knee X-Ray 12/29/24 14:20 IMPRESSION: Mild soft tissue swelling. Reading Location: [place] [address] ED attending interpretation of left knee shows no fracture or dislocation. <Dr. Jeremiah Red, DO - Last Filed: 12/29/24 14:41> MDM Radiography Diagnostic Testing: Clinical Impression(s) from Imaging Studies Knee X-Ray 12/29/24 14:20 IMPRESSION: Mild soft tissue swelling. Reading Location: [place] [address] Treatment and Re-Evaluation :: I have personally performed a face to face assessment of the patient and have reviewed the MASSIMO Note. I performed a substantive portion of the visit including all aspects of the following. My valerio findings include: History: Patient presents with left knee pain that has been getting worse over the past year. Patient states it is gradually getting worse. Patient denies any specific trauma or injury. Patient states the pain is constant. Patient describes it as burning. Patient states it is worse with palpation, ambulation, and weightbearing. Patient states it is better with rest and IcyHot. Patient denies any paresthesias or weakness. Exam: Vital signs are stable. Patient is afebrile. Patient is in no acute distress. Musculoskeletal exam reveals tenderness over the medial aspect of the left knee. There is some mild edema. There is no erythema or warmth noted. There is no bony crepitance or step-off noted. Range of motion was slightly limited in all motions of the left knee secondary to pain. There is no laxity appreciated. Varus and valgus stress tests are negative. Zaynab's test is negative. Extensor mechanism is intact. Strength is 5/5 bilaterally in the lower extremities. There are no sensory deficits noted. Medical Decision Making: Differential diagnosis includes degenerative arthritis, tendinitis, bursitis, sprain, and contusion. X-rays of the left knee will be obtained to assess for degenerative arthritis and occult fracture. X-rays of the left knee were obtained. There are 4 views. On my independent interpretation, there is no acute fracture. There are mild degenerative changes noted. Radiologist also interpreted the x-rays and agrees. Patient was instructed to ice and elevate his left knee. Patient was instructed to take ibuprofen or Tylenol as needed for pain. Patient was advised that this is most likely in the soft tissues such as tendinitis or bursitis. Patient has seen Dr. Dietz in the past. Patient was instructed to follow-up with him for further evaluation. Patient understood and was agreeable with plan. All questions were answered. Discharge Plan Triage Chief Complaint: Lower Extremity Injury ED Midlevel Provider: Philly Souza ED Provider: Jeremiah Red Dx/Rx/DC Orders Clinical Impression: Acute pain of left knee Instructions: ED RICE Prescriptions: No Action lisinopril 10 mg tablet 10 mg PO DAILY Patient Comments: TAKE 1 TABLET BY MOUTH EVERY DAY acetaminophen [Tylenol] 325 mg capsule 325 mg PO Q4H PRN (Reason: pain) ibuprofen 200 mg capsule 200 mg PO Q6H PRN (Reason: pain) sertraline [Zoloft] 50 mg tablet 50 mg PO QDAY albuterol sulfate 90 mcg/actuation HFA aerosol inhaler 2 puff INHALATION Q4H PRN PRN (Reason: shortness of breath or wheezing) oxycodone-acetaminophen [Endocet] 5-325 mg tablet 1 tab PO Q4H MDD 6 PRN (Reason: pain) 5 Days Qty: 20 0RF meloxicam 7.5 mg tablet 7.5 mg PO BID MDD 2 PRN (Reason: post op pain) 14 Days Qty: 14 1RF Primary Care Provider: Sheridan Lai Referrals: Sheridan Lai DO [Primary Care Provider] - Activity Restrictions/Additional Instructions: This could be bursitis which is inflammation of the cushioning pads in your knee. Ice and alternate Tylenol and ibuprofen every 3 hours as needed. Follow-up with your orthopedic doctor. Print Language: Belarusian Disposition Disposition: Home, Self Care Discharge Date/Time: 12/29/24 14:53
--- NOTE | 2024-12-29 14:20 | RAD_ITS ---
PROCEDURE: KNEE 4 OR MORE VIEWS 12/29/2024 REASON FOR EXAM: PAIN One-week history of swelling. No history of trauma. TECHNIQUE: 4 view(s) of the left knee COMPARISON: None FINDINGS: Bones: No fracture. No suspicious bone lesion. Joints: Normal alignment. Mild degenerative changes. Effusion: No effusion. Soft tissues: Soft tissue swelling. Other: RAD/Knee 4 or More Views IMPRESSION: Mild soft tissue swelling. Reading Location: [place] [id number]
== END 2024-12-29 14:53 | disposition home or self-care (01) ==
PROVIDERS: Emergency Provider Emergency Medicine; PCP Internal Medicine; Visit Provider Emergency Medicine
DX: M25.562 Pain in left knee (principal); J44.9 Chronic obstructive pulmonary disease, unspecified; F17.210 Nicotine dependence, cigarettes, uncomplicated; Z96.612 Presence of left artificial shoulder joint; Z96.611 Presence of right artificial shoulder joint
CPT/HCPCS: 73564; 99282

== ENCOUNTER 2025-07-23 05:21 | Emergency (ER) | payer MEDICAID, SELFPAY ==
[2025-07-23 05:21] VITALS: BP 147/86; PULSE 74; RESP 18; TEMP 36.4; O2SAT 97; BMI 27.4
--- NOTE | 2025-07-23 05:54 | EX.ED.DYSGE1 ---
HPI History of Present Illness Chief Complaint: Other, Pain/Inj Informant: patient and spouse/S.O. Narrative Narrative: Patient is a 60-year-old male with past medical history of anxiety and depression as well as hypertension and COPD. He also reports a history of bad shoulders and states he had to have a tendon repair and rotator cuff surgery in the past. 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 He denies any motion or injury that led to sudden onset of pain. However in the last week he has noticed increasing pain of the right shoulder that is worse with motion. He states it feels similar nature to his previous rotator cuff injury. He states he is scheduled to see his family doctor to discuss potential imaging and further treatment options. He states that he is having difficulty performing his job and normal daily activities secondary to persistent pain in his shoulder and therefore comes in for evaluation. [facility] Medical History Osteoarthritis of left knee Left knee pain Depression Marijuana use Emphysema, unspecified COPD (chronic obstructive pulmonary disease) Tendinopathy of right biceps tendon Primary osteoarthritis, right shoulder Right rotator cuff tear Impingement of right shoulder Right shoulder pain Wears glasses Anxiety Alcohol use Arthritis Smoker Shortness of breath on exertion Hypertension Tendinopathy of left biceps tendon Left rotator cuff tear Impingement of left shoulder Left shoulder pain Pneumothorax Home Medications ?Medication ?Instructions ?Recorded ?Last Taken ?Type acetaminophen 325 mg capsule 325 mg PO Q4H PRN pain 09/20/23 Unknown History (Tylenol) ibuprofen 200 mg capsule 200 mg PO Q6H PRN pain 09/20/23 Unknown History sertraline 50 mg tablet (Zoloft) 50 mg PO QDAY 06/09/24 Unknown History albuterol sulfate 90 mcg/actuation 2 puff inhalation Q4H PRN PRN 10/20/24 Unknown History aerosol inhaler shortness of breath or wheezing hydrocodone 7.5 mg-acetaminophen 1 tab PO Q6H PRN PRN severe pain 07/23/25 Unknown History 325 mg tablet hydrocodone 7.5 mg-acetaminophen 1 tab PO Q6H PRN pain 5 days #20 07/23/25 Unknown Rx 325 mg tablet tabs losartan 100 mg tablet 100 mg PO DAILY 07/23/25 Unknown History temazepam 15 mg capsule 15 mg PO QHS PRN PRN insomnia 07/23/25 Unknown History Allergy/AdvReac Type Severity Reaction Status Date / Time No Known Allergies Allergy Verified 07/23/25 05:21 Surgical History Hx of shoulder surgery History of esophagogastroduodenoscopy (EGD) History of colonoscopy History of appendectomy Social History Smoking Status: Current every day smoker tobacco type: cigarettes ROS ROS ED Constitutional Constitutional ED: Denies chills or fever(s) ENT ENT ED: Denies sore throat Cardiovascular Cardiovascular: Denies chest pain Respiratory/Chest Respiratory/Chest: Denies cough or dyspnea Gastrointestinal Gastrointestinal: Denies abdominal pain, diarrhea, nausea or vomiting Musculoskeletal Musculoskeletal: Reports other Details: Positive right shoulder pain Integumentary Denies Abrasions or rash Neurologic Neurologic: Denies headache(s) or paresthesias Psychiatric Psychiatric: Reports anxiety Hematologic/Lymphatic Hematologic/Lymphatic: Denies easy bleeding or easy bruising EXAM Physical Exam Const Vital Signs: 07/23/25 05:21 07/23/25 05:21 07/23/25 05:57 Temperature 97.5 F L 97.5 F L Temperature Source Oral Pulse Rate 74 85 Respiratory Rate 18 17 Respiratory Effort Normal Non-Labored Respiratory Pattern Normal Blood Pressure 147/86 H 128/86 H Blood Pressure Mean 106 100 Pulse Ox 97 98 Oxygen Delivery Method Room Air Positive well nourished and well developed General Appearance ED: well developed; Negative for pallor HEENT HEENT Narrative: Normocephalic atraumatic Eyes PERRL and EOMs intact bilaterally General Eye ED: Negative for scleral icterus Neck supple Resp normal respiratory effort Resp Narrative: Breath sounds are diminished throughout with faint expiratory wheeze in the bilateral bases consistent with history of COPD but no signs of respiratory distress Cardio regular rate and regular rhythm Extremity Extremity Narrative: Right upper extremity is neurovascularly intact; AIN/PIN are intact and normal. Compartments are soft and compressible going against compartment syndrome. No sign of long bone injury such as bony deformity or joint effusion. There is muscular tension and spasm noted mainly along the upper posterior section of the shoulder. There is increased pain with external rotation shoulder extension and abduction. Negative speeds test. Positive [place]. No overlying soft tissue changes such as abrasions or ecchymosis to suggest trauma or erythema or warmth to suggest cellulitis abscess or gout. Neuro oriented x3, CN's II-XII intact bilaterally and no sensory deficits noted Sensorium / Orientation: alert Psych mental status grossly normal Skin no rashes or lesions noted and no wounds General Skin Exam: Negative for jaundice or pallor MDM MDM MDM Narrative Medical decision making narrative: Patient arrived to the ER slightly hypertensive but has a past medical history of this. He reports he is right-hand dominant. He has had previous shoulder surgery for similar issues. He denied any recent trauma and there is no abrasions or ecchymosis to suggest this and based on his physical exam I have low concern for fracture or dislocation so I do not feel the need for an x-ray. There is no overlying erythema or warmth to suggest cellulitis or abscess or gout or herpes zoster. Therefore I feel no need for blood work. The pain is localized along the posterior shoulder region and does not radiate down the arm going against cervical compression/cervical radiculopathy. All compartments are soft and compressible going against compartment syndrome. With increased pain with external rotation and abduction I do feel patient most likely has a tear to the teres minor muscle of the rotator cuff. The patient will require an MRI to assess this which is not available to perform in the ER. Chart review reveals that he only receives his pain medication from his family doctor and he has not been into the ER for multiple months for pain or injury. He will see his family doctor on Sunday and therefore I will provide a short prescription of [place] which he has taken in the past for pain relief. However without signs of secondary infection neurovascular compromise nerve impingement or compartment syndrome there is no need for emergent orthopedic consultation and he is otherwise safe for discharge. History & Record Review Discussion w/independent historian: Patient and Significant other Discharge Plan Triage Chief Complaint: Other, Pain/Inj ED Provider: Min Le Dx/Rx/DC Orders Clinical Impression: Rotator cuff injury, Hypertension, COPD (chronic obstructive pulmonary disease), Anxiety and depression Instructions: Rotator Cuff Tear, ED Rotator Cuff Tear Prescriptions: New hydrocodone-acetaminophen 7.5-325 mg tablet 1 tab PO Q6H PRN (Reason: pain) 5 Days Qty: 20 0RF No Action acetaminophen [Tylenol] 325 mg capsule 325 mg PO Q4H PRN (Reason: pain) ibuprofen 200 mg capsule 200 mg PO Q6H PRN (Reason: pain) sertraline [Zoloft] 50 mg tablet 50 mg PO QDAY albuterol sulfate 90 mcg/actuation HFA aerosol inhaler 2 puff INHALATION Q4H PRN PRN (Reason: shortness of breath or wheezing) temazepam 15 mg capsule 15 mg PO QHS PRN PRN (Reason: insomnia) hydrocodone-acetaminophen 7.5-325 mg tablet 1 tab PO Q6H PRN PRN (Reason: severe pain) losartan 100 mg tablet 100 mg PO DAILY Primary Care Provider: Sheridan Lai Referrals: Sheridan Lai DO [Primary Care Provider, Medical] Livan Dietz MD [Med Staff - Active Staff, Orthopedics] Activity Restrictions/Additional Instructions: Your history and exam would indicate rotator cuff inflammation versus tear. Please talk to your family doctor and/or orthopedic surgeon about an MRI to further assess this. In the meantime please use the prescribed [place] to help control pain and you can still take ibuprofen/Motrin Advil Aleve on top of this as needed. Return to the ER should you have any further concerns Print Language: Upper Sorbian Disposition Disposition: Home, Self Care Discharge Date/Time: 07/23/25 06:01
[2025-07-23 05:57] VITALS: BP 128/86; PULSE 85; RESP 17; TEMP 36.4; O2SAT 98
[2025-07-23] MEDS: HYDROcodone Bitartrate/Apap 5/325 Tablet PO (05:59)
== END 2025-07-23 06:01 | disposition home or self-care (01) ==
PROVIDERS: Emergency Provider Emergency Medicine; PCP Internal Medicine; Visit Provider Emergency Medicine
DX: S46.001A Unspecified injury of muscle(s) and tendon(s) of the rotator cuff of right shoulder, initial encounter (principal); J43.9 Emphysema, unspecified; F41.9 Anxiety disorder, unspecified; F32.A Depression, unspecified; I10 Essential (primary) hypertension; Z79.899 Other long term (current) drug therapy; X58.XXXA Exposure to other specified factors, initial encounter
CPT/HCPCS: 99282